=== PATIENT | female | born 1980 | race Caucasian/White ===

== ENCOUNTER 2016-10-25 09:03 | Day surgery (SDC) | payer MEDICAID ==
[2016-10-25] MEDS ORDERED: HYOSCYAMINE SULFATE ODT 0.125 MG TAB.SUBL PO ONE (12:00)
[2016-10-25] MEDS ORDERED: PROPOFOL 10 MG/ML VIAL IV ONE (14:00)
[2016-10-25] MEDS ORDERED: LIDOCAINE 2% MDV (20MG/ML) 20ML VIAL IV ONE (14:00)
[2016-10-25] MEDS ORDERED: MIDAZOLAM HCL 2MG/2ML VIAL IV ONE (14:00)
--- NOTE | 2016-10-28 08:00 | Operative Note ---
DATE OF SURGERY: 10/25/2016 SURGEON: Yamilet Chavarria MD OPERATION: COLONOSCOPY. INDICATIONS: This is a 36-year-old female with history of chronic diarrhea who presented for colonoscopy. POSTOPERATIVE DIAGNOSES: 1. Normal colonic and terminal ileum mucosa, status post random colon biopsies. 2. Grade 1 internal hemorrhoids. ANESTHESIA: Sedation is per Anesthesia. Pulse oximetry was monitored throughout the procedure to maintain O2 saturation of 90% or greater. Supplemental oxygen was administered via nasal cannula. Cardiac and vital signs were monitored throughout the duration of the procedure, and they were stable. The procedure of colonoscopy and risks and alternatives of the procedure, including the risk of bleeding and perforation, among others, were explained to the patient who voiced understanding and agreed to have the procedure done. Physical examination was performed, and the patient was found stable for sedation. PROCEDURE: The patient was placed in the left lateral position. Sedation was initiated. A digital rectal exam was performed and showed some mild external hemorrhoids with no palpable rectal masses. An Olympus PCF-180AL colonoscope was then inserted into the rectum under direct visualization. It was advanced to the cecum without difficulty. The ileocecal valve and appendiceal orifice were identified and photographed. The colonic mucosa was carefully examined upon introduction of the colonoscope. There were no lesions noted. The was intubated and terminal ileum mucosa was inspected for 10 cm and it appeared normal. The colonoscope was then withdrawn while carefully examining the colonic mucosal surfaces. No other lesions were noted. Random colon biopsies were obtained to rule out microscopic colitis. In the rectum, retroflexion was performed and grade 1 internal hemorrhoids were noted. The colonoscope was then withdrawn and the procedure was terminated. The patient tolerated the procedure well without any immediate complications. She remained with stable vital signs and was transferred to the recovery room. RECOMMENDATIONS: 1. The patient should be on a high-fiber diet. 2. The patient is to have a repeat colonoscopy for screening as needed. In the meantime, we will be seeing her back in the office. Thank you for allowing me to participate in the care of your patient. Yamilet Chavarria MD CC: Dr. Maria T FITCH
== END 2016-10-25 12:12 | disposition home or self-care (01) ==
LOC: HOP 09:03
PROVIDERS: ATTEND Internal Medicine Gastroenterology
DX: K52.9 Noninfective gastroenteritis and colitis, unspecified (principal); K64.0 First degree hemorrhoids; F31.9 Bipolar disorder, unspecified; E03.9 Hypothyroidism, unspecified
CPT/HCPCS: 45380; 00810; J1980

== ENCOUNTER 2016-11-06 13:30 | Emergency (ER) | payer MEDICAID ==
--- NOTE | 2016-11-06 14:17 | Emergency Department Record ---
History of Present Illness - General Chief complaint: Allergic Reaction Stated complaint: MAY BE HAVING A REACTION TO HER MEDS Time Seen by Provider: 11/06/16 13:40 Source: Patient, RN notes reviewed Mode of Arrival: Ambulatory - History of Present Illness Initial Comments: balance is off and she took areduced level of lithium today 600 mg and she didn' t take her lithium last night and this happened once before and she was increased to 900 mg BID in aug 2016. History of bipolar disorder Onset/Timin -: Week(s) Exposure: Medication Symptoms: Other Severity: Mild Treatment Prior to Arrival: None Previous Allergy History: Other - Related Data Home Medications Medication Instructions Recorded Confirmed Last Taken Alprazolam 1 mg PO DAILY PRN 01/11/15 11/06/16 12/25/15 Escitalopram Oxalate [Lexapro] 20 mg PO DAILY 10/19/15 11/06/16 12/25/15 [place] Carbonate [Neshanic 900 mg PO QAM tab 12/29/15 11/06/16 11/06/16 Carbonate Er] Clonidine HCl 0.3 mg PO ONCE tab 06/20/16 11/06/16 Unknown [place] Carbonate 900 mg PO QHS 07/14/16 11/06/16 11/05/16 Hydrocodone/Acetaminophen 1 tab PO QHS 08/09/16 11/06/16 Unknown [Hydrocodon-Acetaminophen 5-325] Previous Rx's Medication Instructions Recorded Promethazine HCl [Phenergan] 25 mg PO TID #15 tablet 07/14/16 Albuterol Sulfate [Proair Hfa] 1 - 2 puff IH .EVERY 4-6 HOURS PRN 08/09/16 #1 inhaler Allergies Allergy/AdvReac Type Severity Reaction Status Date / Time cefuroxime axetil Allergy Intermediate RASH Verified 11/06/16 13:57 [From Ceftin] clarithromycin [From Biaxin] Allergy Intermediate RASH Verified 11/06/16 13:57 divalproex sodium Allergy Intermediate ALTERED Verified 11/06/16 13:57 [From Depakote] MENTAL STATUS gabapentin Allergy Intermediate ALTERED Verified 11/06/16 13:57 MENTAL STATUS iron Allergy Intermediate ITCHING Verified 11/06/16 13:57 Penicillins Allergy Intermediate HIVES Verified 11/06/16 13:57 ondansetron HCl AdvReac Intermediate ALTERED Verified 11/06/16 13:57 [From Zofran (as MENTAL hydrochloride)] STATUS Travel Screening - Travel/Exposure Within Last 30 Days Have you traveled within the last 30 days?: No Review of Systems Reviewed: No additional complaints except as noted below Constitutional: Reports: As per HPI. Denies: Chills, Fever, Malaise, Night sweats, Weakness, Weight change Eyes: Reports: As per HPI. Denies: Eye discharge, Eye pain, Photophobia, Vision change ENT: Reports: As per HPI. Denies: Congestion, Dental pain, Ear pain, Epistaxis , Hearing loss, Throat pain Respiratory: Reports: As per HPI. Denies: Cough, Dyspnea, Hemoptysis, Stridor, Wheezes Cardiovascular: Reports: As per HPI. Denies: Arrhythmia, Chest pain, Dyspnea on exertion, Edema, Murmurs, Orthopnea, Palpitations, Paroxysmal nocturnal dyspnea, Rheumatic Fever, Syncope Endocrine: Reports: As per HPI. Denies: Fatigue, Heat or cold intolerance, Polydipsia, Polyuria Gastrointestinal: Reports: As per HPI. Denies: Abdominal pain, Constipation, Diarrhea, Hematemesis, Hematochezia, Melena, Nausea, Vomiting Genitourinary: Reports: As per HPI. Denies: Abnormal menses, Discharge, Dyspareunia, Dysuria, Frequency, Hematuria, Incontinence, Retention, Urgency Musculoskeletal: Reports: As per HPI. Denies: Arthralgia, Back pain, Gout, Joint swelling, Myalgia, Neck pain Skin: Reports: As per HPI. Denies: Bruising, Change in color, Change in hair/ nails, Lesions, Pruritus, Rash Neurological: Reports: As per HPI, Abnormal gait. Denies: Confusion, Headache, Numbness, Paresthesias, Seizure, Tingling, Tremors, Vertigo, Weakness Psychiatric: Reports: As per HPI. Denies: Anxiety, Auditory hallucinations, Depression, Homicidal thoughts, Suicidal thoughts, Visual hallucinations Hematological/Lymphatic: Reports: As per HPI. Denies: Anemia, Blood Clots, Easy bleeding, Easy bruising, Swollen glands Past Medical History - SOCIAL HISTORY Smoking Status: Former smoker Alcohol Use: None Drug Use: None - RESPIRATORY Hx Respiratory Disorders: Yes Hx Asthma: Yes Hx Bronchitis: Yes Hx Pneumonia: Yes Hx Pulmonary Embolism: Yes (1 in left and 1 in right) - CARDIOVASCULAR Hx Cardio Disorders: Yes Hx Deep Vein Thrombosis: Yes (4 in RLE) Hx Hypertension: Yes Comment:: high cholestrol - NEURO Hx Neuro Disorders: No - GI Hx GI Disorders: Yes Comment:: fatty liver disease - Hx Genitourinary Disorders: Yes - ENDOCRINE Hx Endocrine Disorders: Yes Hx Thyroid Disease: Yes - MUSCULOSKELETAL Hx Musculoskeletal Disorders: No - PSYCH Hx Psych Problems: Yes Hx Anxiety: Yes (panic disorder) Hx Behavior Problems: Yes Hx Depression: Yes Comment:: Bipolar type 1, ADD - HEMATOLOGY/ONCOLOGY Hx Hematology/Oncology Disorders: Yes Hx Anemia: Yes (iron deficiency) Hx Blood Transfusions: Yes Hx Blood Transfusion Reaction: No Family Medical History Any Significant Family History?: Yes Hx HTN: Father, Mother, Brother/Sister, Grandparents Physical Exam - General General Appearance: Alert, Oriented x3, Cooperative, No acute distress - Head Head exam: Normal inspection - Eye Eye exam: Normal appearance, PERRL Pupils: Normal accommodation - ENT ENT exam: Normal exam, Mucous membranes moist, Normal external ear exam, Normal orophraynx, TM's normal bilaterally Ear exam: Normal external inspection. negative: External canal tenderness Nasal Exam: Normal inspection. negative: Discharge, Sinus tenderness Mouth exam: Normal external inspection, Tongue normal Teeth exam: Normal inspection. negative: Dental caries Throat exam: Normal inspection. negative: Tonsillar erythema, Tonsillar exudate - Neck Neck exam: Normal inspection, Full ROM. negative: Tenderness - Respiratory Respiratory exam: Normal lung sounds bilaterally. negative: Respiratory distress - Cardiovascular Cardiovascular Exam: Regular rate, Normal rhythm, Normal heart sounds - GI/Abdominal GI/Abdominal exam: Soft, Normal bowel sounds. negative: Tenderness - Rectal Rectal exam: Deferred - exam: Deferred - Extremities Extremities exam: Normal inspection, Full ROM, Normal capillary refill. negative: Tenderness - Back Back exam: Reports: Normal inspection, Full ROM. Denies: Muscle spasm, Rash noted, Tenderness - Neurological Neurological exam: Alert, Normal gait, Oriented X3, Reflexes normal - Psychiatric Psychiatric exam: Normal affect, Normal mood - Skin Skin exam: Dry, Intact, Normal color, Warm Course Vital Signs 11/06/16 13:53 Temperature 98.8 F Pulse Rate 75 Respiratory 16 Rate Blood Pressure 128/81 Pulse Ox 97 Medical Decision Making - Lab Data Result diagrams: 11/06/16 14:10 11/06/16 14:10 Disposition Clinical Impression: Balance problem Neshanic toxicity Qualifiers: Encounter type: initial encounter Injury intent: accidental or unintentional Qualified Code(s): T56.891A - Toxic effect of other metals, accidental ( unintentional), initial encounter Disposition: Home, Self-Care Instructions: Adverse Drug Reaction (ED) Additional Instructions: stop lithium till friday and contact psychiatrist to decide on the dosage she needs to be on Forms: Patient Portal Access Time of Disposition: 15:19
[2016-11-06] MEDS ORDERED: 0.9 % SODIUM CHLORIDE 1,000 ML BAG IV ONE (14:19)
[2016-11-06 14:53] LABS: BASO % 0.5 % (0-6); EOS % 5.9 % (0-6); GRAN % 65.4 % (47-80); HEMATOCRIT 41.7 % (35.0-47.0); HEMOGLOBIN 13.6 gm/dl (11.6-16.0); LYMPH % 24.4 % (16-45); MEAN CELL VOLUME 93.7 fl (81-97); MEAN CORPUSCULAR HEMOGLOBIN 30.6 pg (27-33); MEAN CORPUSCULAR HGB CONC 32.6 g/dl (32-36); MEAN PLATELET VOLUME 10.5 fl (7.4-10.4); MONO % 3.8 % (0-9); PLATELET COUNT 257 K/uL (130-400); RED BLOOD COUNT 4.45 M/uL (3.80-5.40); RED CELL DISTRIBUTION WIDTH 13.6 % (11.5-14.5); WHITE BLOOD COUNT W/O DIFF 8.8 K/uL (4.2-12.2)
[2016-11-06 15:05] LABS: ANION GAP 14.1 (7-16); BLOOD UREA NITROGEN 5 mg/dL (7-17); CARBON DIOXIDE 22.9 mmol/L (22-30); CREATININE 0.6 mg/dL (0.52-1.04); EST GLOMERULAR FILTRATION RATE > 60 ml/min; GLUCOSE,RANDOM 99 mg/dL (70-110)
== END 2016-11-06 15:38 | disposition home or self-care (01) ==
LOC: ER 13:30
DX: T43.595A Adverse effect of other antipsychotics and neuroleptics, initial encounter (principal); R26.89 Other abnormalities of gait and mobility; F31.89 Other bipolar disorder
CPT/HCPCS: 80048; 85025; 96360; 99284; J7030

== ENCOUNTER 2016-12-02 19:00 | Emergency (ER) | payer MEDICAID ==
--- NOTE | 2016-12-02 19:49 | Emergency Department Record ---
History of Present Illness - General Chief complaint: ENT Stated complaint: SORE THROAT Time Seen by Provider: 12/02/16 19:36 Source: Patient Mode of Arrival: Ambulatory Limitations: No limitations - History of Present Illness Initial comments: pt has had a sore throat, cough, congestion. her daughter has strep. no fever. MD complaint: Sore throat Onset/Timin -: Week(s) Location: Throat Severity scale (1-10): 7 Quality: Aching Consistency: Constant Improves with: None Worsens with: Swallowing Associated Symptoms: Cough, Pain with swallowing, Rhinorrhea, Sore throat - Related Data Home Medications Medication Instructions Recorded Confirmed Last Taken Alprazolam 2 mg PO DAILY PRN 01/11/15 12/02/16 12/25/15 Escitalopram Oxalate [Lexapro] 20 mg PO DAILY 10/19/15 12/02/16 12/25/15 Clonidine HCl 0.3 mg PO QHS tab 06/20/16 12/02/16 Unknown Hydrocodone/Acetaminophen 0.5 tab PO QHS 08/09/16 12/02/16 Unknown [Hydrocodon-Acetaminophen 5-325] [place] Carbonate 300 mg PO BID 12/02/16 12/02/16 Unknown Multivitamin [Daily Multiple 1 each PO DAILY 12/02/16 12/02/16 Unknown Vitamin] Previous Rx's Medication Instructions Recorded Albuterol Sulfate [Proair Hfa] 1 - 2 puff IH .EVERY 4-6 HOURS PRN 08/09/16 #1 inhaler Allergies Allergy/AdvReac Type Severity Reaction Status Date / Time cefuroxime axetil Allergy Intermediate RASH Verified 11/06/16 13:57 [From Ceftin] clarithromycin [From Biaxin] Allergy Intermediate RASH Verified 11/06/16 13:57 divalproex sodium Allergy Intermediate ALTERED Verified 11/06/16 13:57 [From Depakote] MENTAL STATUS gabapentin Allergy Intermediate ALTERED Verified 11/06/16 13:57 MENTAL STATUS iron Allergy Intermediate ITCHING Verified 11/06/16 13:57 Penicillins Allergy Intermediate HIVES Verified 11/06/16 13:57 ondansetron HCl AdvReac Intermediate ALTERED Verified 11/06/16 13:57 [From Zofran (as MENTAL hydrochloride)] STATUS Travel Screening - Travel/Exposure Within Last 30 Days Have you traveled within the last 30 days?: No - Travel Symptoms Symptom Screening: None Review of Systems Reviewed: No additional complaints except as noted below Constitutional: Reports: As per HPI. Denies: Chills, Fever, Malaise, Night sweats, Weakness, Weight change Eyes: Reports: As per HPI. Denies: Eye discharge, Eye pain, Photophobia, Vision change ENT: Reports: As per HPI. Denies: Congestion, Dental pain, Ear pain, Epistaxis , Hearing loss, Throat pain Respiratory: Reports: As per HPI. Denies: Cough, Dyspnea, Hemoptysis, Stridor, Wheezes Cardiovascular: Reports: As per HPI. Denies: Arrhythmia, Chest pain, Dyspnea on exertion, Edema, Murmurs, Orthopnea, Palpitations, Paroxysmal nocturnal dyspnea, Rheumatic Fever, Syncope Endocrine: Reports: As per HPI. Denies: Fatigue, Heat or cold intolerance, Polydipsia, Polyuria Gastrointestinal: Reports: As per HPI. Denies: Abdominal pain, Constipation, Diarrhea, Hematemesis, Hematochezia, Melena, Nausea, Vomiting Genitourinary: Reports: As per HPI. Denies: Abnormal menses, Discharge, Dyspareunia, Dysuria, Frequency, Hematuria, Incontinence, Retention, Urgency Musculoskeletal: Reports: As per HPI. Denies: Arthralgia, Back pain, Gout, Joint swelling, Myalgia, Neck pain Skin: Reports: As per HPI. Denies: Bruising, Change in color, Change in hair/ nails, Lesions, Pruritus, Rash Neurological: Reports: As per HPI. Denies: Abnormal gait, Confusion, Headache, Numbness, Paresthesias, Seizure, Tingling, Tremors, Vertigo, Weakness Psychiatric: Reports: As per HPI. Denies: Anxiety, Auditory hallucinations, Depression, Homicidal thoughts, Suicidal thoughts, Visual hallucinations Hematological/Lymphatic: Reports: As per HPI. Denies: Anemia, Blood Clots, Easy bleeding, Easy bruising, Swollen glands Past Medical History - SOCIAL HISTORY Smoking Status: Former smoker - RESPIRATORY Hx Respiratory Disorders: Yes Hx Asthma: Yes Hx Bronchitis: Yes Hx Pneumonia: Yes Hx Pulmonary Embolism: Yes (1 in left and 1 in right) - CARDIOVASCULAR Hx Cardio Disorders: Yes Hx Deep Vein Thrombosis: Yes (4 in RLE) Hx Hypertension: Yes Comment:: high cholestrol - NEURO Hx Neuro Disorders: No - GI Hx GI Disorders: Yes Comment:: fatty liver disease - Hx Genitourinary Disorders: Yes - ENDOCRINE Hx Endocrine Disorders: Yes Hx Thyroid Disease: Yes - MUSCULOSKELETAL Hx Musculoskeletal Disorders: No - PSYCH Hx Psych Problems: Yes Hx Anxiety: Yes (panic disorder) Hx Behavior Problems: Yes Hx Depression: Yes Comment:: Bipolar type 1, ADD - HEMATOLOGY/ONCOLOGY Hx Hematology/Oncology Disorders: Yes Hx Anemia: Yes (iron deficiency) Hx Blood Transfusions: Yes Hx Blood Transfusion Reaction: No Family Medical History Any Significant Family History?: Yes Hx HTN: Father, Mother, Brother/Sister, Grandparents Physical Exam - General General Appearance: Alert, Oriented x3, Cooperative, Mild distress - Head Head exam: Normal inspection - Eye Eye exam: Normal appearance, PERRL, EOMI Pupils: Normal accommodation - ENT ENT exam: Normal exam, Mucous membranes moist, Normal external ear exam, Normal orophraynx, TM's normal bilaterally Ear exam: Normal external inspection. negative: External canal tenderness Nasal Exam: Normal inspection. negative: Discharge, Sinus tenderness Mouth exam: Normal external inspection, Tongue normal Teeth exam: Normal inspection. negative: Dental caries Throat exam: Tonsillar erythema, Tonsillar exudate - Neck Neck exam: Normal inspection, Full ROM. negative: Tenderness - Respiratory Respiratory exam: Normal lung sounds bilaterally. negative: Respiratory distress - Cardiovascular Cardiovascular Exam: Normal rhythm, Normal heart sounds, Tachycardia - GI/Abdominal GI/Abdominal exam: Soft, Normal bowel sounds. negative: Tenderness - Rectal Rectal exam: Deferred - exam: Deferred - Extremities Extremities exam: Normal inspection, Full ROM, Normal capillary refill. negative: Tenderness - Back Back exam: Reports: Normal inspection, Full ROM. Denies: Muscle spasm, Rash noted, Tenderness - Neurological Neurological exam: Alert, CN II-XII intact, Normal gait, Oriented X3 - Psychiatric Psychiatric exam: Normal affect, Normal mood - Skin Skin exam: Dry, Intact, Normal color, Warm Course Vital Signs 12/02/16 19:15 Temperature 98.3 F Pulse Rate [ 119 H Pulse Ox Probe] Respiratory 20 Rate Blood Pressure 129/96 [Left Arm] Pulse Ox 96 Medical Decision Making - Lab Data Lab Results 12/02/16 Range/Units 19:15 Group A Strep Screen Negative (NEGATIVE) Disposition Disposition: Discharge Clinical Impression: Pharyngitis Qualifiers: Pharyngitis/tonsillitis etiology: unspecified etiology Qualified Code(s): J02.9 - Acute pharyngitis, unspecified Disposition: Home, Self-Care Condition: (1) Good Instructions: Pharyngitis (ED) Additional Instructions: follow up with family doctor. return sooner if worse. tylenol and motrin. rest. Forms: Patient Portal Access
[2016-12-02 20:04] LABS: INFLUENZA A NEGATIVE (NEGATIVE); INFLUENZA B NEGATIVE (NEGATIVE)
== END 2016-12-02 20:21 | disposition home or self-care (01) ==
LOC: ER 19:00
DX: J02.9 Acute pharyngitis, unspecified (principal); R05 Cough
CPT/HCPCS: 87400; 87880; 99282

== ENCOUNTER 2016-12-29 19:42 | Emergency (ER) | payer MEDICAID ==
--- NOTE | 2016-12-29 20:16 | Emergency Department Record ---
History of Present Illness - General Chief Complaint: Chest Pain Stated Complaint: CHEST PAIN/DIZZY Time Seen by Provider: 12/29/16 20:07 Source: Patient Mode of Arrival: Ambulatory Limitations: No limitations - History of Present Illness Initial Comments: The patient is here due to a 5 day hx of CP. She woke up with the pain 5 days ago and it has waxed and waned since. She describes the pain as sometimes a heaviness, sometimes sharp, with no SOB, BRIONNA, sweating, or nausea associated with the pain. The patient does have a hx of a PE and states the pain is similar at times. She denies any recent cough, fever, chills, or any leg pain or recent travel. She does not have any cardiac risk factors. MD Complaint: Chest pain Onset/Timin -: Days(s) Pain Location: Other Pain Radiation: None Severity: Mild Severity scale (1-10): 6 Quality: Heaviness Consistency: Constant Improves With: Nothing Worsens With: Nothing Context: Other Other Symptoms: Other Treatment Prior to Arrival Comment:: anxiety tx's - Related Data Home Medications Medication Instructions Recorded Confirmed Last Taken Alprazolam 2 mg PO DAILY PRN 01/11/15 12/29/16 12/25/15 Escitalopram Oxalate [Lexapro] 20 mg PO DAILY 10/19/15 12/29/16 12/25/15 Clonidine HCl 0.3 mg PO QHS tab 06/20/16 12/29/16 Unknown Hydrocodone/Acetaminophen 0.5 tab PO QHS 08/09/16 12/29/16 Unknown [Hydrocodon-Acetaminophen 5-325] [place] Carbonate 300 mg PO BID 12/02/16 12/29/16 Unknown Multivitamin [Daily Multiple 1 each PO DAILY 12/02/16 12/29/16 Unknown Vitamin] Previous Rx's Medication Instructions Recorded Albuterol Sulfate [Proair Hfa] 1 - 2 puff IH .EVERY 4-6 HOURS PRN 08/09/16 #1 inhaler Naproxen [Naprosyn] 500 mg PO BID #14 tablet. 12/29/16 Allergies Allergy/AdvReac Type Severity Reaction Status Date / Time cefuroxime axetil Allergy Intermediate RASH Verified 11/06/16 13:57 [From Ceftin] clarithromycin [From Biaxin] Allergy Intermediate RASH Verified 11/06/16 13:57 divalproex sodium Allergy Intermediate ALTERED Verified 11/06/16 13:57 [From Depakote] MENTAL STATUS gabapentin Allergy Intermediate ALTERED Verified 11/06/16 13:57 MENTAL STATUS iron Allergy Intermediate ITCHING Verified 11/06/16 13:57 Penicillins Allergy Intermediate HIVES Verified 11/06/16 13:57 ondansetron HCl AdvReac Intermediate ALTERED Verified 11/06/16 13:57 [From Zofran (as MENTAL hydrochloride)] STATUS Travel Screening - Travel/Exposure Within Last 30 Days Have you traveled within the last 30 days?: No - Travel/Exposure Within Last Year Have you traveled outside the [place] in the last year?: No - Additonal Travel Details Have you been exposed to anyone with a communicable illness?: No - Travel Symptoms Symptom Screening: None Review of Systems Constitutional: Denies: Chills, Fever Eyes: Denies: Eye discharge ENT: Denies: Congestion Respiratory: Denies: Cough, Dyspnea Cardiovascular: Reports: Chest pain Past Medical History - SOCIAL HISTORY Smoking Status: Former smoker Alcohol Use: None Drug Use: None - RESPIRATORY Hx Respiratory Disorders: Yes Hx Asthma: Yes Hx Bronchitis: Yes Hx Pneumonia: Yes Hx Pulmonary Embolism: Yes (1 in left and 1 in right) - CARDIOVASCULAR Hx Cardio Disorders: Yes Hx Deep Vein Thrombosis: Yes (4 in RLE) Hx Hypertension: Yes Comment:: high cholestrol - NEURO Hx Neuro Disorders: No - GI Hx GI Disorders: Yes Comment:: fatty liver disease - Hx Genitourinary Disorders: Yes - ENDOCRINE Hx Endocrine Disorders: Yes Hx Thyroid Disease: Yes - MUSCULOSKELETAL Hx Musculoskeletal Disorders: No - PSYCH Hx Psych Problems: Yes Hx Anxiety: Yes (panic disorder) Hx Behavior Problems: Yes Hx Depression: Yes Comment:: Bipolar type 1, ADD - HEMATOLOGY/ONCOLOGY Hx Hematology/Oncology Disorders: Yes Hx Anemia: Yes (iron deficiency) Hx Blood Transfusions: Yes Hx Blood Transfusion Reaction: No Family Medical History Any Significant Family History?: No Hx HTN: Father, Mother, Brother/Sister, Grandparents Physical Exam - General General Appearance: Alert, Oriented x3, Cooperative, No acute distress - Head Head exam: Atraumatic, Normocephalic, Normal inspection - Eye Eye exam: Normal appearance, PERRL - ENT Throat exam: Normal inspection. negative: Tonsillar erythema, Tonsillar exudate - Neck Neck exam: Normal inspection, Full ROM. negative: Tenderness - Respiratory Respiratory exam: Normal lung sounds bilaterally, Chest wall tenderness ( Palpation of the anterior chest wall exactly reproduces the patient's chest pain. Chest rotation and shoulder extension also reproduce the pain.). negative : Respiratory distress - Cardiovascular Cardiovascular Exam: Regular rate, Normal rhythm, Normal heart sounds - GI/Abdominal GI/Abdominal exam: Soft, Normal bowel sounds. negative: Tenderness - Extremities Extremities exam: Normal inspection, Full ROM, Normal capillary refill. negative: Tenderness - Neurological Neurological exam: Alert, Normal gait. negative: Abnormal gait, Motor sensory deficit - Psychiatric Psychiatric exam: negative: Anxious, Depressed Course Vital Signs 12/29/16 19:54 Temperature 98.2 F Pulse Rate 68 Respiratory 20 Rate Blood Pressure 133/74 Pulse Ox 98 - Reevaluation(s) Reevaluation #1: The patient is resting comfortably. She denies any new symptoms. Her pain is still very reproducible to palpation. I did explain to her that her workup is normal and that we will be treating her with pain medicine for chest wall pain. 12/29/16 21:20 Reevaluation #2: The patient is doing well. She is still having the pain which is still 100% reproducible and now states she is out of her chronic pain medicine which is Follett. She states she ran out 3-4 days ago and her chest wall pain has increased since then. I explained to her that we will be unable to give her a script for Follett but that I can get her 2 pills for home to last her until she can see her PCP tomorrow. 12/29/16 21:35 Medical Decision Making - Data Complexity MDM Data: Labs Ordered and/or Reviewed, X-Ray Ordered and/or Reviewed, EKG Ordered and/or Reviewed - Lab Data Result diagrams: 12/29/16 20:15 12/29/16 20:15 - EKG Data -: EKG Interpreted by Me EKG: No Acute Changes, Normal EKG - Radiology Data Radiology results: Report reviewed (CXR: Neg Chest CT: Neg) Disposition Disposition: Discharge Clinical Impression: Chest wall pain Disposition: Home, Self-Care Condition: (1) Good Instructions: Chest Wall Pain (ED) Additional Instructions: Please take the Naprosyn for pain and continue your regular medicines. Please see your PCP this week for recheck and to refill your Follett. Return to the ER for any increased pain, fever, or any trouble breathing. Prescriptions: Naproxen [Naprosyn] 500 mg PO BID #14 tablet.dr Forms: Patient Portal Access Time of Disposition: 21:35
[2016-12-29 20:26] LABS: BASO % 0.8 % (0-6); EOS % 4.4 % (0-6); GRAN % 57.8 % (47-80); HEMATOCRIT 40.5 % (35.0-47.0); HEMOGLOBIN 13.1 gm/dl (11.6-16.0); LYMPH % 31.4 % (16-45); MEAN CELL VOLUME 92.7 fl (81-97); MEAN CORPUSCULAR HGB CONC 32.3 g/dl (32-36); MEAN PLATELET VOLUME 10.1 fl (7.4-10.4); MONO % 5.6 % (0-9); PLATELET COUNT 254 K/uL (130-400); RED BLOOD COUNT 4.37 M/uL (3.80-5.40); RED CELL DISTRIBUTION WIDTH 13.4 % (11.5-14.5); WHITE BLOOD COUNT W/O DIFF 10.4 K/uL (4.2-12.2)
[2016-12-29 20:36] LABS: ANION GAP 9.7 (7-16); BLOOD UREA NITROGEN 9 mg/dL (7-17); CARBON DIOXIDE 27.3 mmol/L (22-30); CREATINE PHOSPHOKINASE 55 U/L (30-135); CREATININE 0.7 mg/dL (0.52-1.04); EST GLOMERULAR FILTRATION RATE > 60 ml/min; GLUCOSE,RANDOM 85 mg/dL (70-110)
[2016-12-29 20:40] LABS: D-DIMER 0.5 mg/L FEU (0-0.59); INR 0.99; PARTIAL THROMBOPLASTIN TIME 24.9 SECONDS (24.5-39.1); PROTHROMBIN TIME (PATIENT) 11.2 SECONDS (9.5-12.1)
[2016-12-29] MEDS ORDERED: 0.9 % SODIUM CHLORIDE 1,000 ML BAG IV ONE (20:46)
[2016-12-29 20:48] LABS: CKMB 1.9 ug/L (0-6); TROPONIN I < 0.012 ng/mL (0.00-0.034)
[2016-12-29] MEDS ORDERED: KETOROLAC 30 MG/ML VIAL IVP ONE (21:18)
[2016-12-29] MEDS ORDERED: HYDROCODONE/APAP 5/325MG TABLET PO ONE (21:33)
== END 2016-12-29 21:48 | disposition home or self-care (01) ==
LOC: ER 19:42
DX: R07.89 Other chest pain (principal); R42 Dizziness and giddiness; I10 Essential (primary) hypertension; Z86.711 Personal history of pulmonary embolism; Z87.891 Personal history of nicotine dependence
CPT/HCPCS: 99284 ×2; 96374; 96361; 82550; 85025; 85730; 85610; 82553; 84484; 80048; 85379; 71020; 71275; 93005; 93010; Q9967; J1885; J7030

== ENCOUNTER 2017-03-13 20:02 | Emergency (ER) | payer MEDICAID ==
--- NOTE | 2017-03-13 20:24 | Emergency Department Record ---
History of Present Illness - General Chief complaint: Swelling of legs Stated complaint: PAIN AND SWELLING IN LEFT LEG Time Seen by Provider: 03/13/17 20:19 Source: Patient Mode of Arrival: Ambulatory - History of Present Illness Initial comments: The patient states that she began having swelling in her foot and up her left lower leg yesterday morning. This evening prior to arrival she developed SOB/ CP also. These symptoms are like her prior DVT and PE which she has had in the past in September of 2015 when her D Dimer was 10. She had been placed on on anticoagulants at that time, but has been off them since January of 2016. She has had several CTA's since then. She denies ever having seen a concrete form setter, and denies ever having had a stress test. She denies history of WI, DM, htn, chol elevation. She is a former smoker. She states she has a clotting problem but is unsure of what kind. MD Complaint: Extremity swelling Onset/Timin -: Days(s) Location: Left, Foot Severity scale (1-10): 5 Consistency: Constant, Getting worse Worsens with: Nothing Associated Symptoms: Denies other symptoms - Related Data Home Medications Medication Instructions Recorded Confirmed Last Taken Alprazolam 2 mg PO BID PRN 01/11/15 03/13/17 12/25/15 Escitalopram Oxalate [Lexapro] 20 mg PO DAILY 10/19/15 03/13/17 12/25/15 Clonidine HCl 0.3 mg PO QHS tab 06/20/16 03/13/17 Unknown Hydrocodone/Acetaminophen 0.5 tab PO QHS 08/09/16 03/13/17 Unknown [Hydrocodon-Acetaminophen 5-325] Mcloud Carbonate 300 mg PO BID 12/02/16 03/13/17 Unknown Multivitamin [Daily Multiple 1 each PO DAILY 12/02/16 03/13/17 Unknown Vitamin] Previous Rx's Medication Instructions Recorded Albuterol Sulfate [Proair Hfa] 1 - 2 puff IH .EVERY 4-6 HOURS PRN 08/09/16 #1 inhaler Allergies Allergy/AdvReac Type Severity Reaction Status Date / Time cefuroxime axetil Allergy Intermediate RASH Unverified 02/25/17 19:31 [From Ceftin] clarithromycin [From Biaxin] Allergy Intermediate RASH Unverified 02/25/17 19:31 divalproex sodium Allergy Intermediate ALTERED Unverified 02/25/17 19:31 [From Depakote] MENTAL STATUS gabapentin Allergy Intermediate ALTERED Unverified 02/25/17 19:31 MENTAL STATUS iron Allergy Intermediate ITCHING Unverified 02/25/17 19:31 Penicillins Allergy Intermediate HIVES Unverified 02/25/17 19:31 ondansetron HCl AdvReac Intermediate ALTERED Unverified 02/25/17 19:31 [From Zofran (as MENTAL hydrochloride)] STATUS Travel Screening - Travel/Exposure Within Last 30 Days Have you traveled within the last 30 days?: No Review of Systems Reviewed: No additional complaints except as noted below Constitutional: Reports: As per HPI. Denies: Chills, Fever, Malaise, Night sweats, Weakness, Weight change Eyes: Reports: As per HPI. Denies: Eye discharge, Eye pain, Photophobia, Vision change ENT: Reports: As per HPI. Denies: Congestion, Dental pain, Ear pain, Epistaxis , Hearing loss, Throat pain Respiratory: Reports: As per HPI. Denies: Cough, Dyspnea, Hemoptysis, Stridor, Wheezes Cardiovascular: Reports: As per HPI. Denies: Arrhythmia, Chest pain, Dyspnea on exertion, Edema, Murmurs, Orthopnea, Palpitations, Paroxysmal nocturnal dyspnea, Rheumatic Fever, Syncope Endocrine: Reports: As per HPI. Denies: Fatigue, Heat or cold intolerance, Polydipsia, Polyuria Gastrointestinal: Reports: As per HPI. Denies: Abdominal pain, Constipation, Diarrhea, Hematemesis, Hematochezia, Melena, Nausea, Vomiting Genitourinary: Reports: As per HPI. Denies: Abnormal menses, Discharge, Dyspareunia, Dysuria, Frequency, Hematuria, Incontinence, Retention, Urgency Musculoskeletal: Reports: As per HPI. Denies: Arthralgia, Back pain, Gout, Joint swelling, Myalgia, Neck pain Skin: Reports: As per HPI. Denies: Bruising, Change in color, Change in hair/ nails, Lesions, Pruritus, Rash Neurological: Reports: As per HPI. Denies: Abnormal gait, Confusion, Headache, Numbness, Paresthesias, Seizure, Tingling, Tremors, Vertigo, Weakness Psychiatric: Reports: As per HPI. Denies: Anxiety, Auditory hallucinations, Depression, Homicidal thoughts, Suicidal thoughts, Visual hallucinations Hematological/Lymphatic: Reports: As per HPI. Denies: Anemia, Blood Clots, Easy bleeding, Easy bruising, Swollen glands Past Medical History - SOCIAL HISTORY Smoking Status: Former smoker Alcohol Use: None Drug Use: None - RESPIRATORY Hx Respiratory Disorders: Yes Hx Asthma: Yes Hx Bronchitis: Yes Hx Pneumonia: Yes Hx Pulmonary Embolism: Yes (1 in left and 1 in right) - CARDIOVASCULAR Hx Cardio Disorders: Yes Hx Deep Vein Thrombosis: Yes (4 in RLE) Hx Hypertension: Yes Comment:: high cholestrol - NEURO Hx Neuro Disorders: No - GI Hx GI Disorders: Yes Comment:: fatty liver disease - Hx Genitourinary Disorders: Yes - ENDOCRINE Hx Endocrine Disorders: Yes Hx Thyroid Disease: Yes - MUSCULOSKELETAL Hx Musculoskeletal Disorders: No - PSYCH Hx Psych Problems: Yes Hx Anxiety: Yes (panic disorder) Hx Behavior Problems: Yes Hx Depression: Yes Comment:: Bipolar type 1, ADD - HEMATOLOGY/ONCOLOGY Hx Hematology/Oncology Disorders: Yes Hx Anemia: Yes (iron deficiency) Hx Blood Transfusions: Yes Hx Blood Transfusion Reaction: No Family Medical History Any Significant Family History?: Yes Hx HTN: Father, Mother, Brother/Sister, Grandparents Physical Exam - General General Appearance: Alert, Oriented x3, Cooperative, No acute distress, Anxious (mildly anxious) - Head Head exam: Normal inspection - Eye Eye exam: Normal appearance, PERRL Pupils: Normal accommodation - ENT ENT exam: Normal exam, Mucous membranes moist, Normal external ear exam, Normal orophraynx, TM's normal bilaterally Ear exam: Normal external inspection. negative: External canal tenderness Nasal Exam: Normal inspection. negative: Discharge, Sinus tenderness Mouth exam: Normal external inspection, Tongue normal Teeth exam: Normal inspection. negative: Dental caries Throat exam: Normal inspection. negative: Tonsillar erythema, Tonsillar exudate - Neck Neck exam: Normal inspection, Full ROM. negative: Lymphadenopathy, Meningismus , Tenderness - Respiratory Respiratory exam: Normal lung sounds bilaterally. negative: Respiratory distress - Cardiovascular Cardiovascular Exam: Regular rate, Normal rhythm, Normal heart sounds - GI/Abdominal GI/Abdominal exam: Soft, Normal bowel sounds. negative: Tenderness - Rectal Rectal exam: Deferred - exam: Deferred - Extremities Extremities exam: Normal inspection, Calf tenderness (left leg swollen from foot up to knee with tenderness in her calf posteriorly, no cellulitis. ), Full ROM, Normal capillary refill, Pedal edema (left leg from foot to below knee). negative: Tenderness - Back Back exam: Reports: Normal inspection, Full ROM. Denies: Muscle spasm, Rash noted, Tenderness - Neurological Neurological exam: Alert, Normal gait, Oriented X3, Reflexes normal - Psychiatric Psychiatric exam: Normal affect, Normal mood - Skin Skin exam: Dry, Intact, Normal color, Warm. negative: Diaphoretic, Petechiae Course Vital Signs 03/13/17 20:10 Temperature 98.2 F Pulse Rate [ 95 H Pulse Ox Probe] Respiratory 18 Rate Blood Pressure 141/95 [Left Arm] Pulse Ox 97 - Reevaluation(s) Reevaluation #1: The patient reports to me that on her way to CT scan she developed a 5-6/10 chest heaviness across the anterior chest and into her right shoulder. She has has some heaviness since 5 or 6 pm this evening about a 1-2 severity and attributed it to her anxiety attacks which she has had in the past. 03/13/17 22:12 Reevaluation #2: 15 minutes after her ativan the patient states that her chest symptoms have not changed and remain 5-6/10 heavy across the anterior chest and to right shoulder slightlyl. Nitro trial ordered. Patient wishes transfer to [facility] for her workup including dopplers of her left leg. 03/13/17 22:39 Reevaluation #3: 03/13/17 22:59 Patient states that the nitros times three did not change her chest pain. Toradol given. Preparing for transfer. Reevaluation #4: Spoke with Dr Rob Desai Emergency attending who accepts patient in transfer for dopplers of her left leg and evaluation for chest pain as indicated. 03/13/17 23:18 Medical Decision Making - Management Options MDM Management: Additional Work-up Planned (e.g. ADM/Transfer/OP Study) ( Transfer to [facility] Emergency for dopoplers of left leg and chest pain workup) - Data Complexity MDM Data: Labs Ordered and/or Reviewed, X-Ray Ordered and/or Reviewed (CTA: No PE aortic dissection or aneurysm. Bibasilar changes which were present on prior scan of December 2016. No infiltrates.), EKG Ordered and/or Reviewed - Lab Data Result diagrams: 03/13/17 20:34 03/13/17 20:34 - EKG Data -: EKG Interpreted by Me EKG: No Acute Changes, Unchanged From Previous (prior of 12-29-16) Disposition Disposition: Transfer Clinical Impression: Left leg swelling, Hx pulmonary embolism, Coagulopathy Chest pain Qualifiers: Chest pain type: precordial pain Qualified Code(s): R07.2 - Precordial pain Disposition: Acute Care Hospital Transfer Transfer To: [facility] Reason For Transfer: Dopplers of leg; chest pain evaluation Accepting Physician: Dr. Rivas Time Discussed w/Accepting Physician: 23:20 Condition: (2) Stable
[2017-03-13 20:45] LABS: BASO % 0.9 % (0-6); EOS % 5.5 % (0-6); GRAN % 60.5 % (47-80); HEMATOCRIT 37.3 % (35.0-47.0); HEMOGLOBIN 11.9 gm/dl (11.6-16.0); LYMPH % 28.3 % (16-45); MEAN CELL VOLUME 96.1 fl (81-97); MEAN CORPUSCULAR HEMOGLOBIN 30.7 pg (27-33); MEAN CORPUSCULAR HGB CONC 31.9 g/dl (32-36); MEAN PLATELET VOLUME 10.1 fl (7.4-10.4); MONO % 4.8 % (0-9); PLATELET COUNT 263 K/uL (130-400); RED BLOOD COUNT 3.88 M/uL (3.80-5.40); RED CELL DISTRIBUTION WIDTH 14.4 % (11.5-14.5); WHITE BLOOD COUNT W/O DIFF 9.7 K/uL (4.2-12.2)
[2017-03-13 20:54] LABS: ANION GAP 7.2 (7-16); BLOOD UREA NITROGEN 8 mg/dL (7-17); CARBON DIOXIDE 26.8 mmol/L (22-30); CREATININE 0.6 mg/dL (0.52-1.04); EST GLOMERULAR FILTRATION RATE > 60 ml/min; GLUCOSE,RANDOM 93 mg/dL (70-110)
[2017-03-13 20:58] LABS: INR 0.97; PARTIAL THROMBOPLASTIN TIME 22.5 SECONDS (24.5-39.1)
[2017-03-13 20:59] LABS: D-DIMER 0.85 mg/L FEU (0-0.59)
[2017-03-13 21:07] LABS: TROPONIN I < 0.012 ng/mL (0.00-0.034)
[2017-03-13 22:09] LABS: URINE APPEARANCE CLEAR; URINE BILIRUBIN NEGATIVE (NEGATIVE); URINE BLOOD NEGATIVE (NEGATIVE); URINE COLOR YELLOW; URINE GLUCOSE (UA) NEGATIVE (NEGATIVE); URINE KETONE NEGATIVE (NEGATIVE); URINE LEUKOCYTE ESTERASE NEGATIVE (NEGATIVE); URINE NITRITE NEGATIVE (NEGATIVE); URINE PROTEIN NEGATIVE (NEGATIVE); URINE UROBILINOGEN 0.2 E.U./dL (0.20 - 1.00)
[2017-03-13] MEDS ORDERED: ASPIRIN 325 MG TAB ENTERIC-COATED PO ONE (22:11)
[2017-03-13] MEDS ORDERED: LORAZEPAM 2 MG/ML VIAL IV ONE (22:11)
[2017-03-13] MEDS: NITROGLYCERIN 0.4MG SL TABLET #25 BTL SL PRN ×3 (22:41→22:51)
[2017-03-13] MEDS ORDERED: KETOROLAC 30 MG/ML VIAL IVP ONE (22:58)
--- NOTE | 2017-03-15 15:13 | CT ANGIOGRAM REPORT ---
DATE: 03/13/2017 at 21:05. EXAM: CT ANGIOGRAM OF THE CHEST. HISTORY: Chest pain with shortness of breath for two days. TECHNIQUE: CT angiogram of the chest was performed utilizing a pulmonary embolus protocol with 95 mL of Omnipaque 350 utilized. Coronal and sagittal maximum-intensity projection reformatted images are generated and reviewed. COMPARISON: CT angiogram of the chest dated 12/29/2016. FINDINGS: Opacification of the pulmonary arteries is satisfactory for interpretation. No luminal filling defect is noted in the outflow tract, main arteries, lobar arteries, nor proximal segmental arteries to suggest acute pulmonary embolic disease. The heart is near the upper limits of normal in size. There is no evidence of right heart strain. No atherosclerotic calcification of the coronary arteries nor thoracic aorta. No evidence of thoracic aortic dissection. No mediastinal or hilar mass/lymphadenopathy. Minor bi-apical lung scarring is redemonstrated. Minor patchy opacities are noted dependently in each lung base consistent with atelectasis. There is possible trace fluid in the dependent mid portions of each hemithorax versus atelectasis. The adrenal glands are not enlarged. The gallbladder is surgically absent, and no biliary ductal dilatation is seen. Diffuse hepatic steatosis is redemonstrated. No lytic or blastic bone lesion is seen. Mild degenerative endplate changes are noted at the mid to upper thoracic levels. IMPRESSION: 1. NO CT EVIDENCE OF ACUTE PULMONARY EMBOLIC DISEASE. 2. MILD DEPENDENT ATELECTASIS IN EACH LUNG BASE. THERE IS TRACE PLEURAL FLUID DEPENDENTLY AT THE MID ASPECTS OF EACH HEMITHORAX VERSUS ATELECTASIS. A RELATIVELY SIMILAR PATTERN IS NOTED ON THE PRIOR EXAMINATION. NO JULIA PLEURAL EFFUSION IS, HOWEVER, SEEN. 3. STATUS POST CHOLECYSTECTOMY. HEPATIC STEATOSIS. JOB NUMBER: [id number] [facility]
== END 2017-03-14 00:20 | disposition short-term general hospital (02) ==
LOC: ER 20:02
DX: R60.0 Localized edema (principal); R07.89 Other chest pain; R06.02 Shortness of breath; D68.9 Coagulation defect, unspecified; R79.89 Other specified abnormal findings of blood chemistry; I10 Essential (primary) hypertension; Z86.718 Personal history of other venous thrombosis and embolism; Z87.891 Personal history of nicotine dependence
CPT/HCPCS: 99285 ×2; 96374; 96375; 85025; 85730; 85610; 84484; 80048; 81003; 84443; 85379; 83880; 71275; 93005; 93010; Q9967; J1885; J2060

== ENCOUNTER 2017-03-31 13:19 | Observation (INO) | payer MEDICAID ==
--- NOTE | 2017-03-31 14:21 | Emergency Department Record ---
History of Present Illness - General Chief Complaint: Overdose Stated Complaint: MEDS CHECK Time Seen by Provider: 03/31/17 14:20 Source: Patient Mode of Arrival: Ambulatory Limitations: No limitations - History of Present Illness Initial Comments: The patient is here due to not feeling well for a few days. She states she takes Lithum for depression and anxiety and has been feeling depressed lately. Due to that fact she was taking a couple extra lithium a day for the last few days. She was NOT trying to OD or hurt herself but states the extra lithium helps with her depression. Now she feels like she may be lithium toxic. She has mild tremors, nausea, anxiety, and restlessness. MD Complaint: Accidental overdose Onset/Timin -: Days(s) - Maximus Coma Scale Eye Response: (4) Open spontaneously Motor Response: (6) Obeys commands Verbal Response: (5) Oriented Maximus Total: 15 Substance Ingested: Rhododendron - Detail Intent: Other How Overdose Was Discovered: Called counselor Associated Symptoms: Depression, Diarrhea, Lethargy, Nausea/vomiting, Paranoia - Related Data Home Medications Medication Instructions Recorded Confirmed Last Taken Alprazolam 2 mg PO BID PRN 01/11/15 03/31/17 03/31/17 Escitalopram Oxalate [Lexapro] 20 mg PO DAILY 10/19/15 03/31/17 03/31/17 Clonidine HCl 0.3 mg PO QHS tab 06/20/16 03/31/17 03/31/17 Hydrocodone/Acetaminophen 0.5 tab PO QHS 08/09/16 03/31/17 03/30/17 [Hydrocodon-Acetaminophen 5-325] Rhododendron Carbonate 300 mg PO BID 12/02/16 03/31/17 03/31/17 Multivitamin [Daily Multiple 1 each PO DAILY 12/02/16 03/31/17 03/31/17 Vitamin] Cholestyramine (with Sugar) 4 gm PO BID 03/31/17 03/31/17 03/31/17 [Cholestyramine Packet] Previous Rx's Medication Instructions Recorded Albuterol Sulfate [Proair Hfa] 1 - 2 puff IH .EVERY 4-6 HOURS PRN 08/09/16 #1 inhaler Allergies Allergy/AdvReac Type Severity Reaction Status Date / Time cefuroxime axetil Allergy Intermediate RASH Unverified 02/25/17 19:31 [From Ceftin] clarithromycin [From Biaxin] Allergy Intermediate RASH Unverified 02/25/17 19:31 divalproex sodium Allergy Intermediate ALTERED Unverified 02/25/17 19:31 [From Depakote] MENTAL STATUS gabapentin Allergy Intermediate ALTERED Unverified 02/25/17 19:31 MENTAL STATUS iron Allergy Intermediate ITCHING Unverified 02/25/17 19:31 Penicillins Allergy Intermediate HIVES Unverified 02/25/17 19:31 ondansetron HCl AdvReac Intermediate ALTERED Unverified 02/25/17 19:31 [From Zofran (as MENTAL hydrochloride)] STATUS Travel Screening - Travel/Exposure Within Last 30 Days Have you traveled within the last 30 days?: No - Travel/Exposure Within Last Year Have you traveled outside the [place] in the last year?: No - Additonal Travel Details Have you been exposed to anyone with a communicable illness?: No Review of Systems Constitutional: Denies: Chills, Fever Eyes: Denies: Eye discharge ENT: Denies: Congestion Respiratory: Denies: Cough, Dyspnea Past Medical History - SOCIAL HISTORY Smoking Status: Former smoker Alcohol Use: None Drug Use: None - RESPIRATORY Hx Respiratory Disorders: Yes Hx Asthma: Yes Hx Bronchitis: Yes Hx Pneumonia: Yes Hx Pulmonary Embolism: Yes (1 in left and 1 in right) - CARDIOVASCULAR Hx Cardio Disorders: Yes Hx Deep Vein Thrombosis: Yes (4 in RLE) Hx Hypertension: Yes Comment:: high cholestrol - NEURO Hx Neuro Disorders: No - GI Hx GI Disorders: Yes Comment:: fatty liver disease - Hx Genitourinary Disorders: Yes - ENDOCRINE Hx Endocrine Disorders: Yes Hx Thyroid Disease: Yes - MUSCULOSKELETAL Hx Musculoskeletal Disorders: No - PSYCH Hx Psych Problems: Yes Hx Anxiety: Yes (panic disorder) Hx Behavior Problems: Yes Hx Depression: Yes Comment:: Bipolar type 1, ADD - HEMATOLOGY/ONCOLOGY Hx Hematology/Oncology Disorders: Yes Hx Anemia: Yes (iron deficiency) Hx Blood Transfusions: Yes Hx Blood Transfusion Reaction: No Family Medical History Any Significant Family History?: No Hx HTN: Father, Mother, Brother/Sister, Grandparents Physical Exam - General General Appearance: Alert, Oriented x3, Cooperative, No acute distress - Head Head exam: Atraumatic, Normocephalic - Eye Eye exam: Normal appearance, PERRL - ENT Throat exam: Normal inspection. negative: Tonsillar erythema, Tonsillar exudate - Neck Neck exam: Normal inspection, Full ROM. negative: Tenderness - Respiratory Respiratory exam: Normal lung sounds bilaterally. negative: Respiratory distress - Cardiovascular Cardiovascular Exam: Regular rate, Normal rhythm, Normal heart sounds - GI/Abdominal GI/Abdominal exam: Soft, Normal bowel sounds. negative: Tenderness - Extremities Extremities exam: Normal inspection, Full ROM, Normal capillary refill. negative: Tenderness - Back Back exam: Reports: Normal inspection - Neurological Neurological exam: Alert, Normal gait, Oriented X3. negative: Abnormal gait, Motor sensory deficit - Psychiatric Psychiatric exam: negative: Anxious, Depressed Course Vital Signs 03/31/17 14:10 Temperature 99.1 F Pulse Rate 66 Respiratory 16 Rate Blood Pressure 122/81 Pulse Ox 96 - Reevaluation(s) Reevaluation #1: The patient is doing very well at this time. She is resting comfortably with no nausea, vomiting, or tremors. 03/31/17 15:00 Reevaluation #2: The patient is doing very well at this time. She denies any pain or discomfort and she has receive 2 liters of IVF. The Rhododendron level is quite toxic at 2.6 but the patient is doing very well at this time with very few symptoms of toxicity. Due to the level being that high we will admit her overnight to the hospital for hydration and for monitoring. I did discuss the case with Matilde ZAVALA) and she does accept the admission for DR. Can. 03/31/17 17:44 Medical Decision Making - Data Complexity MDM Data: Labs Ordered and/or Reviewed, EKG Ordered and/or Reviewed - Lab Data Result diagrams: 03/31/17 14:48 03/31/17 14:48 - EKG Data -: EKG Interpreted by Me EKG: No Acute Changes, Unchanged From Previous Disposition Disposition: Admit Clinical Impression: Rhododendron toxicity Qualifiers: Encounter type: initial encounter Injury intent: accidental or unintentional Qualified Code(s): T56.891A - Toxic effect of other metals, accidental ( unintentional), initial encounter Disposition: Still a Patient at [facility] Decision to Admit: Admit from ER Decision to Admit Date: 03/31/17 Decision to Admit Time: 17:47 Accepting Physician: Pamella Time Discussed w/Accepting Physician: 17:47 Condition: (2) Stable Forms: Patient Portal Access Time of Disposition: 17:47 Quality - Quality Measures Quality Measures: N/A - Blood Pressure Screening View Details: Yes Blood Pressure Classification: Pre-Hypertensive BP Reading Systolic Measurement: 122 Diastolic Measurement: 81 Screening for High Blood Pressure: < Pre-Hypertensive BP, F/U Documented > [ [id number]] Pre-Hypertensive Follow-up Interventions: Follow-up with rescreen every year.
[2017-03-31] MEDS ORDERED: ONDANSETRON HCL IV 4 MG/2 ML VIAL IV ONE (14:23)
[2017-03-31] MEDS ORDERED: 0.9 % SODIUM CHLORIDE 1,000 ML BAG IV ONE ×2 (14:23→16:37)
[2017-03-31] MEDS ORDERED: PROMETHAZINE HCL 25 MG/ML VIAL IVP ONE (14:47)
[2017-03-31 14:54] LABS: BASO % 0.4 % (0-6); EOS % 5.2 % (0-6); GRAN % 68.1 % (47-80); HEMATOCRIT 41.8 % (35.0-47.0); HEMOGLOBIN 13.7 gm/dl (11.6-16.0); LYMPH % 22.1 % (16-45); MEAN CELL VOLUME 96.1 fl (81-97); MEAN CORPUSCULAR HEMOGLOBIN 31.5 pg (27-33); MEAN CORPUSCULAR HGB CONC 32.8 g/dl (32-36); MEAN PLATELET VOLUME 10.1 fl (7.4-10.4); MONO % 4.2 % (0-9); PLATELET COUNT 258 K/uL (130-400); RED BLOOD COUNT 4.35 M/uL (3.80-5.40); RED CELL DISTRIBUTION WIDTH 13.5 % (11.5-14.5)
[2017-03-31 15:06] LABS: ACETAMINOPHEN < 10.0 ug/mL (10.0-30.0); ALB/GLOB RATIO 1.3 (1.1-1.8); ALBUMIN 4.6 gm/dL (3.5-5.0); ALKALINE PHOSPHATASE 81 U/L (38-126); ALT/SGPT 168 U/L (9-52); ANION GAP 9.6 (7-16); AST/SGOT 95 U/L (14-36); BILIRUBIN,TOTAL 0.88 mg/dL (0.2-1.3); BLOOD UREA NITROGEN 10 mg/dL (7-17); CARBON DIOXIDE 28.4 mmol/L (22-30); CREATININE 0.7 mg/dL (0.52-1.04); EST GLOMERULAR FILTRATION RATE > 60 ml/min; GLUCOSE,RANDOM 95 mg/dL (70-110); TOTAL PROTEIN 8.1 gm/dL (6.3-8.2)
[2017-03-31 15:39] LABS: URINE APPEARANCE CLEAR; URINE BILIRUBIN NEGATIVE (NEGATIVE); URINE BLOOD NEGATIVE (NEGATIVE); URINE COLOR YELLOW; URINE GLUCOSE (UA) NEGATIVE (NEGATIVE); URINE KETONE NEGATIVE (NEGATIVE); URINE LEUKOCYTE ESTERASE NEGATIVE (NEGATIVE); URINE NITRITE NEGATIVE (NEGATIVE); URINE PROTEIN NEGATIVE (NEGATIVE); URINE UROBILINOGEN 0.2 E.U./dL (0.20 - 1.00)
[2017-03-31 15:44] LABS: BENZODIAZEPINE SCREEN URINE DETECTED; OPIATE SCREEN URINE DETECTED; TRICYCLIC ANTIDEPRESSANT SCRN DETECTED
[2017-03-31 15:45] LABS: AMPHETAMINE SCREEN URINE NOT DETECTED; BARBITURATE SCREEN URINE NOT DETECTED; COCAINE SCREEN URINE NOT DETECTED; METHADONE SCREEN URINE NOT DETECTED; METHAMPHETAMINE SCREEN NOT DETECTED; OXYCODONE SCREEN URINE NOT DETECTED; PHENCYCLIDINE SCREEN URINE NOT DETECTED; PROPOXYPHENE SCREEN URINE NOT DETECTED; THC SCREEN URINE NOT DETECTED
[2017-03-31 15:49] LABS: SALICYLATE < 1.0 mg/dL (2.8-20.0)
[2017-03-31] MEDS ORDERED: ALPRAZOLAM 0.25 MG TABLET PO PRN (18:04)
[2017-03-31] MEDS ORDERED: ALBUTEROL SULFATE (0.083%) 2.5 MG/3 ML NEB INH PRN (18:04)
[2017-03-31] MEDS: PROMETHAZINE HCL 25 MG/ML VIAL IVP PRN (21:58)
[2017-03-31] MEDS ORDERED: CLONIDINE HCL 0.1 MG TABLET PO SCH (22:00)
[2017-03-31] MEDS ORDERED: HYDROCODONE/APAP 5/325MG TABLET PO SCH (22:00)
[2017-04-01] MEDS: 0.9 % SODIUM CHLORIDE 1000ML 1,000 ML IV PRN ×2 (01:06→07:38)
[2017-04-01 06:30] LABS: BASO % 0.6 % (0-6); EOS % 5.7 % (0-6); HEMATOCRIT 42.1 % (35.0-47.0); HEMOGLOBIN 13.5 gm/dl (11.6-16.0); LYMPH % 26.4 % (16-45); MEAN CELL VOLUME 96.6 fl (81-97); MEAN CORPUSCULAR HGB CONC 32.1 g/dl (32-36); MEAN PLATELET VOLUME 10.1 fl (7.4-10.4); MONO % 4.3 % (0-9); PLATELET COUNT 237 K/uL (130-400); RED BLOOD COUNT 4.36 M/uL (3.80-5.40); RED CELL DISTRIBUTION WIDTH 13.6 % (11.5-14.5); WHITE BLOOD COUNT W/O DIFF 11.1 K/uL (4.2-12.2)
[2017-04-01 06:39] LABS: ALB/GLOB RATIO 1.1 (1.1-1.8); ALBUMIN 3.6 gm/dL (3.5-5.0); ALKALINE PHOSPHATASE 77 U/L (38-126); ALT/SGPT 140 U/L (9-52); ANION GAP 9.5 (7-16); AST/SGOT 92 U/L (14-36); BILIRUBIN,TOTAL 1.08 mg/dL (0.2-1.3); BLOOD UREA NITROGEN 9 mg/dL (7-17); CARBON DIOXIDE 22.5 mmol/L (22-30); CREATININE 0.7 mg/dL (0.52-1.04); EST GLOMERULAR FILTRATION RATE > 60 ml/min; GLUCOSE,RANDOM 97 mg/dL (70-110); TOTAL PROTEIN 6.8 gm/dL (6.3-8.2)
[2017-04-01] MEDS ORDERED: LEVOTHYROXINE SODIUM 25 MCG TABLET PO SCH (07:00)
[2017-04-01] MEDS ORDERED: ALPRAZOLAM 1 MG TAB PO PRN (08:15)
[2017-04-01] MEDS ORDERED: ALBUTEROL SULFATE (0.083%) 2.5 MG/3 ML NEB INH PRN (09:45)
[2017-04-01] MEDS ORDERED: ESCITALOPRAM 10 MG TABLET PO SCH (10:00)
--- NOTE | 2017-04-01 10:00 | History & Physical ---
History of Present Illness - Date of Service Date of Service for History & Physical: 04/01/17 - History of Present Illness Admitting Diagnosis: 1. Kevil Toxicity History of Present Illness: 37 y/o female with CC mild tremors, nausea, anxiety and restlessness admitted for Kevil toxicity. Past medical history includes asthma, bronchitis, pneumonia, PE, DVT, HTN, high cholesterol, fatty liver disease, thyroid disease , panic disorder, depression, bipolar type 1, ADD, iron deficiency anemia Past Surgical History cholecystectomy sclera buckle oral surgery x 2 hysterectomy Prior to admission had been feeling more depressed than usual due to stressors with a new significant other and chronic relational dynamics with her mother for the previous 2 weeks. About 3 days ago self increased her lithium dose to 1200 mg twice daily from her usual dosing of 600mg twice daily and took increased dose for about 3 days. Since the increase in dose has been experiencing mild tremors, nausea, anxiety and restlessness. Has increased Kevil dosing on her own before for worsening of depression but has never increased it by this much. Is a current patient with [facility] [place], next appointment is June 17, 2017. Denies any SI/HI ideations. Had not intention of harming herself with increasing the dose of her Kevil. While in the ED was started on IV hydration, initial Kevil level 2.6 as confirmed by [facility]. EKG with no acute changes. Renal functio normal. Admitted for IV hydration and Kevil level monitoring, symptom management. Laboratory Results WBC 11.1 K/uL (4.2-12.2) 04/01/17 06:19 RBC 4.36 M/uL (3.80-5.40) 04/01/17 06:19 Hgb 13.5 gm/dl (11.6-16.0) 04/01/17 06:19 Hct 42.1 % (35.0-47.0) 04/01/17 06:19 MCV 96.6 fl (81-97) 04/01/17 06:19 MCH 31.0 pg (27-33) 04/01/17 06:19 MCHC 32.1 g/dl (32-36) 04/01/17 06:19 RDW 13.6 % (11.5-14.5) 04/01/17 06:19 Plt Count 237 K/uL (130-400) 04/01/17 06:19 MPV 10.1 fl (7.4-10.4) 04/01/17 06:19 Gran % 63.0 % (47-80) 04/01/17 06:19 Lymphocytes % 26.4 % (16-45) 04/01/17 06:19 Monocytes % 4.3 % (0-9) 04/01/17 06:19 Eosinophils % 5.7 % (0-6) 04/01/17 06:19 Basophils % 0.6 % (0-6) 04/01/17 06:19 Sodium 140 mmol/L (136-145) 04/01/17 06:19 Potassium 4.0 mmol/L (3.5-5.1) 04/01/17 06:19 Chloride 108 mmol/L (98-107) H 04/01/17 06:19 Carbon Dioxide 22.5 mmol/L (22-30) 04/01/17 06:19 Anion Gap 9.5 (7-16) 04/01/17 06:19 BUN 9 mg/dL (7-17) 04/01/17 06:19 Creatinine 0.7 mg/dL (0.52-1.04) 04/01/17 06:19 Estimated GFR > 60 ml/min 04/01/17 06:19 Random Glucose 97 mg/dL (70-110) 04/01/17 06:19 Calcium 9.3 mg/dL (8.5-10.1) 04/01/17 06:19 Total Bilirubin 1.08 mg/dL (0.2-1.3) 04/01/17 06:19 AST 92 U/L (14-36) H 04/01/17 06:19 ALT 140 U/L (9-52) H 04/01/17 06:19 Alkaline Phosphatase 77 U/L (38-126) 04/01/17 06:19 Total Protein 6.8 gm/dL (6.3-8.2) 04/01/17 06:19 Albumin 3.6 gm/dL (3.5-5.0) 04/01/17 06:19 Globulin 3.2 gm/dL (1.4-4.8) 04/01/17 06:19 Albumin/Globulin Ratio 1.1 (1.1-1.8) 04/01/17 06:19 Urine Color Yellow 03/31/17 15:35 Urine Appearance Clear 03/31/17 15:35 Urine pH 7.5 (5.0-8.0) 03/31/17 15:35 Ur Specific [place] 1.015 (1.002-1.030) 03/31/17 15:35 Urine Protein Negative (NEGATIVE) 03/31/17 15:35 Urine Glucose (UA) Negative (NEGATIVE) 03/31/17 15:35 Urine Ketones Negative (NEGATIVE) 03/31/17 15:35 Urine Blood Negative (NEGATIVE) 03/31/17 15:35 Urine Nitrite Negative (NEGATIVE) 03/31/17 15:35 Urine Bilirubin Negative (NEGATIVE) 03/31/17 15:35 Urine Urobilinogen 0.2 E.U./dL (0.20 - 1.00) 03/31/17 15:35 Ur Leukocyte Esterase Negative (NEGATIVE) 03/31/17 15:35 Salicylates < 1.0 mg/dL (2.8-20.0) L 03/31/17 14:48 Urine Opiates Screen Detected 03/31/17 15:35 Ur Oxycodone Screen Not detected 03/31/17 15:35 Urine Methadone Screen Not detected 03/31/17 15:35 Ur Propoxyphene Screen Not detected 03/31/17 15:35 Acetaminophen < 10.0 ug/mL (10.0-30.0) L 03/31/17 14:48 Ur Barbituates Screen Not detected 03/31/17 15:35 Ur Tricyclics Screen Detected 03/31/17 15:35 Ur Phencyclidine Scrn Not detected 03/31/17 15:35 Ur Amphetamine Screen Not detected 03/31/17 15:35 U Methamphetamines Scrn Not detected 03/31/17 15:35 U Benzodiazepines Scrn Detected 03/31/17 15:35 Urine Cocaine Screen Not detected 03/31/17 15:35 Urine Cannabis Screen Not detected 03/31/17 15:35 Vital Signs - Last 24 Hrs Temp Pulse Pulse Resp BP BP Pulse Ox 04/01/17 09:00 98 F 73 14 108/69 97 04/01/17 05:00 97.6 F 75 18 117/72 97 03/31/17 21:00 70 16 03/31/17 20:04 97.8 F 71 18 119/69 97 03/31/17 18:40 76 16 03/31/17 18:00 98.0 F 73 18 119/79 96 03/31/17 17:30 71 16 123/67 99 03/31/17 17:00 70 16 117/70 98 03/31/17 16:40 97.9 F 74 16 102/57 98 03/31/17 14:10 99.1 F 66 16 122/81 96 04/01/17- Resting in bed comfortably. Tremors have subsided, anxiety has slightly improve, only slight nausea but is tolerating PO intake with no emesis or diarrhea. Denies any further complaint. Reports problems with the significant other have resolved and issues between her and her mother have significantly improved after meeting with her counselor last week. PCP: Yaneli Burgess Psychiatrist: Dr [facility] Therapist- Livia Moody Travel Screening - Travel/Exposure Within Last 30 Days Have you traveled within the last 30 days?: No - Travel/Exposure Within Last Year Have you traveled outside the [place] in the last year?: No - Additonal Travel Details Have you been exposed to anyone with a communicable illness?: No - Travel Symptoms Symptom Screening: None Review of Systems Constitutional: Denies: Chills, Fever Eyes: Denies: Eye discharge ENT: Denies: Congestion Respiratory: Denies: Cough, Dyspnea Past Medical History - SOCIAL HISTORY Smoking Status: Former smoker Alcohol Use: None Drug Use: None - RESPIRATORY Hx Respiratory Disorders: Yes Hx Asthma: Yes Hx Bronchitis: Yes Hx Pneumonia: Yes Hx Pulmonary Embolism: Yes (1 in left and 1 in right) - CARDIOVASCULAR Hx Cardio Disorders: Yes Hx Deep Vein Thrombosis: Yes (4 in RLE) Hx Hypertension: Yes Comment:: high cholestrol - NEURO Hx Neuro Disorders: No - GI Hx GI Disorders: Yes Comment:: fatty liver disease - Hx Genitourinary Disorders: Yes - ENDOCRINE Hx Endocrine Disorders: Yes Hx Thyroid Disease: Yes - MUSCULOSKELETAL Hx Musculoskeletal Disorders: No - PSYCH Hx Psych Problems: Yes Hx Anxiety: Yes (panic disorder) Hx Behavior Problems: Yes Hx Depression: Yes Comment:: Bipolar type 1, ADD - HEMATOLOGY/ONCOLOGY Hx Hematology/Oncology Disorders: Yes Hx Anemia: Yes (iron deficiency) Hx Blood Transfusions: Yes Hx Blood Transfusion Reaction: No Family Medical History Any Significant Family History?: Yes Hx HTN: Father, Mother, Brother/Sister, Grandparents H&P Meds/Allergies - Allergies Allergies: Allergies Allergy/AdvReac Type Severity Reaction Status Date / Time cefuroxime axetil Allergy Intermediate RASH Unverified 02/25/17 19:31 [From Ceftin] clarithromycin [From Biaxin] Allergy Intermediate RASH Unverified 02/25/17 19:31 divalproex sodium Allergy Intermediate ALTERED Unverified 02/25/17 19:31 [From Depakote] MENTAL STATUS gabapentin Allergy Intermediate ALTERED Unverified 02/25/17 19:31 MENTAL STATUS iron Allergy Intermediate ITCHING Unverified 02/25/17 19:31 Penicillins Allergy Intermediate HIVES Unverified 02/25/17 19:31 ondansetron HCl AdvReac Intermediate ALTERED Unverified 02/25/17 19:31 [From Zofran (as MENTAL hydrochloride)] STATUS - Home Medications Home Medications Medication Instructions Recorded Confirmed Last Taken Alprazolam 2 mg PO BID PRN 01/11/15 03/31/17 03/31/17 Escitalopram Oxalate [Lexapro] 20 mg PO DAILY 10/19/15 03/31/17 03/31/17 Clonidine HCl 0.3 mg PO QHS tab 06/20/16 03/31/17 03/31/17 Hydrocodone/Acetaminophen 0.5 tab PO QHS 08/09/16 03/31/17 03/30/17 [Hydrocodon-Acetaminophen 5-325] Kevil Carbonate 300 mg PO BID 12/02/16 03/31/17 03/31/17 Multivitamin [Daily Multiple 1 each PO DAILY 12/02/16 03/31/17 03/31/17 Vitamin] Cholestyramine (with Sugar) 4 gm PO BID 03/31/17 03/31/17 03/31/17 [Cholestyramine Packet] Previous Rx's Medication Instructions Recorded Albuterol Sulfate [Proair Hfa] 1 - 2 puff IH .EVERY 4-6 HOURS PRN 08/09/16 #1 inhaler - Active Medications Active Medications: Current Medications Hydrocodone Bitart/Acetaminophen ([place] 5mg/325mg) 1 each PO QHS ALEJANDRO Last Admin: 03/31/17 21:59 Dose: 1 each Albuterol Sulfate () 2.5 mg INH Q4H PRN PRN Reason: SHORTNESS OF BREATH Alprazolam (Xanax) 1 mg PO BID PRN PRN Reason: ANXIETY Clonidine HCl (Catapres) 0.3 mg PO QHS [facility] Last Admin: 03/31/17 21:59 Dose: 0.3 mg Escitalopram Oxalate (Lexapro) 20 mg PO DAILY [facility] Last Admin: 04/01/17 09:35 Dose: 20 mg Sodium Chloride () 1,000 mls @ 150 mls/hr IV .Q6H40M PRN PRN Reason: LARGE VOLUME IV Last Admin: 04/01/17 07:38 Dose: 150 mls/hr Levothyroxine Sodium (Synthroid) 25 mcg PO DAILYTHY [facility] Last Admin: 04/01/17 06:51 Dose: 25 mcg Promethazine HCl (Phenergan) 12.5 mg IVP Q6H PRN PRN Reason: NAUSEA Last Admin: 03/31/17 21:58 Dose: 12.5 mg Physical Exam - Vital Signs Vital Signs: Vital Signs - Last 24 Hrs Temp Pulse Resp BP Pulse Ox 04/01/17 09:00 98 F 73 14 108/69 97 04/01/17 05:00 97.6 F 75 18 117/72 97 03/31/17 21:00 70 16 03/31/17 20:04 97.8 F 71 18 119/69 97 03/31/17 18:40 76 16 - General General Appearance: Alert, Oriented x3, Cooperative, No acute distress Limitations: No limitations - Head Head exam: Atraumatic, Normocephalic - Eye Eye exam: Normal appearance, PERRL - ENT Throat exam: Normal inspection. negative: Tonsillar erythema, Tonsillar exudate - Neck Neck exam: Normal inspection, Full ROM. negative: Tenderness - Respiratory Respiratory exam: Normal lung sounds bilaterally. negative: Respiratory distress - Cardiovascular Cardiovascular Exam: Regular rate, Normal rhythm, Normal heart sounds Peripheral Pulses: 2+: Dorsalis Pedis (R), Dorsalis Pedis (L) - GI/Abdominal GI/Abdominal exam: Soft, Normal bowel sounds. negative: Tenderness - Extremities Extremities exam: Normal inspection, Full ROM, Normal capillary refill. negative: Tenderness - Back Back exam: Reports: Normal inspection - Neurological Neurological exam: Alert, Normal gait, Oriented X3. negative: Abnormal gait, Motor sensory deficit - Psychiatric Psychiatric exam: negative: Anxious, Depressed - Skin Skin exam: Dry, Intact, Normal color, Warm Results - Labs Result Diagrams: 04/01/17 06:19 04/01/17 06:19 Labs Last 24 Hours: Laboratory Results - last 24 hr 04/01/17 04/01/17 06:19 06:19 WBC 11.1 RBC 4.36 Hgb 13.5 Hct 42.1 MCV 96.6 MCH 31.0 MCHC 32.1 RDW 13.6 Plt Count 237 MPV 10.1 Gran % 63.0 Lymphocytes % 26.4 Monocytes % 4.3 Eosinophils % 5.7 Basophils % 0.6 Sodium 140 Potassium 4.0 Chloride 108 H Carbon Dioxide 22.5 Anion Gap 9.5 BUN 9 Creatinine 0.7 Estimated GFR > 60 Random Glucose 97 Calcium 9.3 Total Bilirubin 1.08 AST 92 H ALT 140 H Alkaline Phosphatase 77 Total Protein 6.8 Albumin 3.6 Globulin 3.2 Albumin/Globulin Ratio 1.1 VTE H&P Assessment - Risk for VTE Risk for VTE: Yes Risk Level: Moderate Risk Assessment Date: 04/01/17 Risk Assessment Time: 11:16 VTE Orders Placed or Will Be Placed: Yes Plan - Detailed Diagnosis and Plan (1) Kevil toxicity Current Visit: Yes Status: Acute Qualifiers: Encounter type: initial encounter Injury intent: accidental or unintentional Qualified Code(s): T56.891A - Toxic effect of other metals, accidental (unintentional), initial encounter Base Code: T56.891A - TOXIC EFFECT OF OTH METALS, ACCIDENTAL (UNINTENTIONAL), INIT Comment: 04/01/17- Kevil level 2.6 03/31/17 in ED. Toxicity symptoms improved since initiating IV hydration. Is established with psychiatrist and therapist in the community. Renal function normal. No neurological concerns. Denies SI/HI. - await today's Kevil level, plan to DC today as long as level is trending down and symptoms continue to improve - she has been tasked to contact psychiatrist to move June 17 appt to within the next 1-2 weeks - she has been advised not to increase any medication dosages unless she contacts her psychiatrist (2) DVT prophylaxis Current Visit: Yes Status: Acute Base Code: [id number] - Comment: 04/01/17- does have hx PE and DVT. No current anticoagulation therapy. Nursing to encourage frequent ambulation (3) Full code status Current Visit: Yes Status: Acute Base Code: Z78.9 - OTHER SPECIFIED HEALTH STATUS Comment: 04/01/17- will remain full code during this hospitalization
--- NOTE | 2017-04-01 14:55 | Discharge Summary ---
Providers Discharge Summary Date: 04/01/17 Date of admission: 03/31/17 18:00 Expected Date of Discharge: 04/01/17 Attending physician: ANDRESSA ROSSI Primary care physician: ANDRESSA ROSSI Physical Exam - Vital Signs Vital Signs: Vital Signs - Last 24 Hrs Temp Pulse Resp BP Pulse Ox 04/01/17 13:00 98.3 F 78 16 96/59 98 04/01/17 09:00 98 F 73 14 108/69 97 04/01/17 05:00 97.6 F 75 18 117/72 97 03/31/17 21:00 70 16 03/31/17 20:04 97.8 F 71 18 119/69 97 03/31/17 18:40 76 16 - General General Appearance: Alert, Oriented x3, Cooperative, No acute distress Limitations: No limitations - Head Head exam: Atraumatic, Normocephalic - Eye Eye exam: Normal appearance, PERRL - ENT Throat exam: Normal inspection. negative: Tonsillar erythema, Tonsillar exudate - Neck Neck exam: Normal inspection, Full ROM. negative: Tenderness - Respiratory Respiratory exam: Normal lung sounds bilaterally. negative: Respiratory distress - Cardiovascular Cardiovascular Exam: Regular rate, Normal rhythm, Normal heart sounds Peripheral Pulses: 2+: Dorsalis Pedis (R), Dorsalis Pedis (L) - GI/Abdominal GI/Abdominal exam: Soft, Normal bowel sounds. negative: Tenderness - Extremities Extremities exam: Normal inspection, Full ROM, Normal capillary refill. negative: Tenderness - Back Back exam: Reports: Normal inspection - Neurological Neurological exam: Alert, Normal gait, Oriented X3. negative: Abnormal gait, Motor sensory deficit - Psychiatric Psychiatric exam: negative: Anxious, Depressed - Skin Skin exam: Dry, Intact, Normal color, Warm Hospitalization - Hospitalization Admission Diagnosis: 1. Quesada Toxicity - Problem List/Discharge Diagnosis (1) Quesada toxicity Current Visit: Yes Status: Acute Discharge Diagnosis: Encounter type: initial encounter Injury intent: accidental or unintentional Qualified Code(s): T56.891A - Toxic effect of other metals, accidental (unintentional), initial encounter Base Code: T56.891A - TOXIC EFFECT OF OTH METALS, ACCIDENTAL (UNINTENTIONAL), INIT Comment: 04/01/17- Quesada level 2.6 03/31/17 in ED. Toxicity symptoms improved since initiating IV hydration. Is established with psychiatrist and therapist in the community. Renal function normal. No neurological concerns. Denies SI/HI. - Quesada level 1.5 today - she has been tasked to contact psychiatrist to move June 17 appt to within the next 1-2 weeks - follow up PCP 1-2 weeks - she has been advised not to increase any medication dosages unless she contacts her psychiatrist - may resume usual dosing of Quesada as per usual home dose ( patient reports 600mg BID) (2) DVT prophylaxis Current Visit: Yes Status: Acute Base Code: [id number] - Comment: 04/01/17- does have hx PE and DVT. No current anticoagulation therapy. Nursing to encourage frequent ambulation (3) Full code status Current Visit: Yes Status: Acute Base Code: Z78.9 - OTHER SPECIFIED HEALTH STATUS Comment: 04/01/17- will remain full code during this hospitalization - Hospitalization Course Disposition: Home, Self-Care Hospital Course: 37 y/o female with CC mild tremors, nausea, anxiety and restlessness admitted for Quesada toxicity. Past medical history includes asthma, bronchitis, pneumonia, PE, DVT, HTN, high cholesterol, fatty liver disease, thyroid disease , panic disorder, depression, bipolar type 1, ADD, iron deficiency anemia Past Surgical History cholecystectomy sclera buckle oral surgery x 2 hysterectomy Prior to admission had been feeling more depressed than usual due to stressors with a new significant other and chronic relational dynamics with her mother for the previous 2 weeks. About 3 days ago self increased her lithium dose to 1200 mg twice daily from her usual dosing of 600mg twice daily and took increased dose for about 3 days. Since the increase in dose has been experiencing mild tremors, nausea, anxiety and restlessness. Has increased Quesada dosing on her own before for worsening of depression but has never increased it by this much. Is a current patient with [facility], next appointment is June 17, 2017. Denies any SI/HI ideations. Had not intention of harming herself with increasing the dose of her Quesada. While in the ED was started on IV hydration, initial Ques[place] level 2.6 as confirmed by [facility]. EKG with no acute changes. Renal functio normal. Admitted for IV hydration and Quesada level monitoring, symptom management. Laboratory Results WBC 11.1 K/uL (4.2-12.2) 04/01/17 06:19 RBC 4.36 M/uL (3.80-5.40) 04/01/17 06:19 Hgb 13.5 gm/dl (11.6-16.0) 04/01/17 06:19 Hct 42.1 % (35.0-47.0) 04/01/17 06:19 MCV 96.6 fl (81-97) 04/01/17 06:19 MCH 31.0 pg (27-33) 04/01/17 06:19 MCHC 32.1 g/dl (32-36) 04/01/17 06:19 RDW 13.6 % (11.5-14.5) 04/01/17 06:19 Plt Count 237 K/uL (130-400) 04/01/17 06:19 MPV 10.1 fl (7.4-10.4) 04/01/17 06:19 Gran % 63.0 % (47-80) 04/01/17 06:19 Lymphocytes % 26.4 % (16-45) 04/01/17 06:19 Monocytes % 4.3 % (0-9) 04/01/17 06:19 Eosinophils % 5.7 % (0-6) 04/01/17 06:19 Basophils % 0.6 % (0-6) 04/01/17 06:19 Sodium 140 mmol/L (136-145) 04/01/17 06:19 Potassium 4.0 mmol/L (3.5-5.1) 04/01/17 06:19 Chloride 108 mmol/L (98-107) H 04/01/17 06:19 Carbon Dioxide 22.5 mmol/L (22-30) 04/01/17 06:19 Anion Gap 9.5 (7-16) 04/01/17 06:19 BUN 9 mg/dL (7-17) 04/01/17 06:19 Creatinine 0.7 mg/dL (0.52-1.04) 04/01/17 06:19 Estimated GFR > 60 ml/min 04/01/17 06:19 Random Glucose 97 mg/dL (70-110) 04/01/17 06:19 Calcium 9.3 mg/dL (8.5-10.1) 04/01/17 06:19 Total Bilirubin 1.08 mg/dL (0.2-1.3) 04/01/17 06:19 AST 92 U/L (14-36) H 04/01/17 06:19 ALT 140 U/L (9-52) H 04/01/17 06:19 Alkaline Phosphatase 77 U/L (38-126) 04/01/17 06:19 Total Protein 6.8 gm/dL (6.3-8.2) 04/01/17 06:19 Albumin 3.6 gm/dL (3.5-5.0) 04/01/17 06:19 Globulin 3.2 gm/dL (1.4-4.8) 04/01/17 06:19 Albumin/Globulin Ratio 1.1 (1.1-1.8) 04/01/17 06:19 Urine Color Yellow 03/31/17 15:35 Urine Appearance Clear 03/31/17 15:35 Urine pH 7.5 (5.0-8.0) 03/31/17 15:35 Ur Specific [place] 1.015 (1.002-1.030) 03/31/17 15:35 Urine Protein Negative (NEGATIVE) 03/31/17 15:35 Urine Glucose (UA) Negative (NEGATIVE) 03/31/17 15:35 Urine Ketones Negative (NEGATIVE) 03/31/17 15:35 Urine Blood Negative (NEGATIVE) 03/31/17 15:35 Urine Nitrite Negative (NEGATIVE) 03/31/17 15:35 Urine Bilirubin Negative (NEGATIVE) 03/31/17 15:35 Urine Urobilinogen 0.2 E.U./dL (0.20 - 1.00) 03/31/17 15:35 Ur Leukocyte Esterase Negative (NEGATIVE) 03/31/17 15:35 Salicylates < 1.0 mg/dL (2.8-20.0) L 03/31/17 14:48 Urine Opiates Screen Detected 03/31/17 15:35 Ur Oxycodone Screen Not detected 03/31/17 15:35 Urine Methadone Screen Not detected 03/31/17 15:35 Ur Propoxyphene Screen Not detected 03/31/17 15:35 Acetaminophen < 10.0 ug/mL (10.0-30.0) L 03/31/17 14:48 Ur Barbituates Screen Not detected 03/31/17 15:35 Ur Tricyclics Screen Detected 03/31/17 15:35 Ur Phencyclidine Scrn Not detected 03/31/17 15:35 Ur Amphetamine Screen Not detected 03/31/17 15:35 U Methamphetamines Scrn Not detected 03/31/17 15:35 U Benzodiazepines Scrn Detected 03/31/17 15:35 Urine Cocaine Screen Not detected 03/31/17 15:35 Urine Cannabis Screen Not detected 03/31/17 15:35 Vital Signs - Last 24 Hrs Temp Pulse Pulse Resp BP BP Pulse Ox 04/01/17 09:00 98 F 73 14 108/69 97 04/01/17 05:00 97.6 F 75 18 117/72 97 03/31/17 21:00 70 16 03/31/17 20:04 97.8 F 71 18 119/69 97 03/31/17 18:40 76 16 03/31/17 18:00 98.0 F 73 18 119/79 96 03/31/17 17:30 71 16 123/67 99 03/31/17 17:00 70 16 117/70 98 03/31/17 16:40 97.9 F 74 16 102/57 98 03/31/17 14:10 99.1 F 66 16 122/81 96 04/01/17- Resting in bed comfortably. Tremors have subsided, anxiety has slightly improve, only slight nausea but is tolerating PO intake with no emesis or diarrhea. Denies any further complaint. Reports problems with the significant other have resolved and issues between her and her mother have significantly improved after meeting with her counselor last week. PCP: Yaneli Burgess Psychiatrist: Dr [facility] Therapist- Livia Moody Abnormal Labs: Abnormal Lab Results 04/01/17 04/01/17 Range/Units 06:19 06:19 Chloride 108 H (98-107) mmol/L AST 92 H (14-36) U/L ALT 140 H (9-52) U/L [place] 1.5 H (0.5-1.2) mmol/L Condition at Discharge: (2) Stable Discharge Medications - Discharge Medications Home Medications: Ambulatory Orders Alprazolam 2 mg PO BID PRN 01/11/15 [Last Taken 03/31/17] Escitalopram Oxalate [Lexapro] 20 mg PO DAILY 10/19/15 [Last Taken 03/31/17] Clonidine HCl 0.3 mg PO QHS tab 10/06/16 [Last Taken 03/31/17] Albuterol Sulfate [Proair Hfa] 1 - 2 puff IH .EVERY 4-6 HOURS PRN #1 inhaler [Last Taken 03/31/17] Hydrocodone/Acetaminophen [Hydrocodon-Acetaminophen 5-325] 0.5 tab PO QHS [Last Taken 03/30/17] [place] Carbonate 300 mg PO BID 12/02/16 [Last Taken 03/31/17] Multivitamin [Daily Multiple Vitamin] 1 each PO DAILY 12/02/16 [Last Taken 03/31] Cholestyramine (with Sugar) [Cholestyramine Packet] 4 gm PO BID 03/31/17 [Last Taken 03/31/17] Discharge Plan - Discharge Instructions Activity at Discharge: Increase Activity as Tolerated, Return To Work Once Cleared By Your PCP/Specialist Diet at Discharge: Regular Diet
[2017-04-01] MEDS: PROMETHAZINE HCL 25 MG/ML VIAL IVP PRN (15:00)
== END 2017-04-01 15:35 | disposition home or self-care (01) ==
LOC: ER 13:19 → MEDSURG 18:00
PROVIDERS: ADMIT Family Medicine; ATTEND Family Medicine
DX: T43.591A Poisoning by other antipsychotics and neuroleptics, accidental (unintentional), initial encounter (principal); R45.1 Restlessness and agitation; F31.9 Bipolar disorder, unspecified; E03.9 Hypothyroidism, unspecified; K76.0 Fatty (change of) liver, not elsewhere classified; J45.909 Unspecified asthma, uncomplicated; Z86.718 Personal history of other venous thrombosis and embolism; E78.00 Pure hypercholesterolemia, unspecified; Z78.9 Other specified health status; I10 Essential (primary) hypertension
CPT/HCPCS: 80053; 80178; 80305; 80329; 81003; 85025; 93005; 93010; 93041; 96361; 96374; 99220; 99285; J2550; J7030

== ENCOUNTER 2017-05-03 20:21 | Emergency (ER) | payer MEDICAID ==
[2017-05-03] MEDS ORDERED: HYOSCYAMINE SULFATE ODT 0.125 MG TAB.SUBL SL ONE (20:35)
[2017-05-03] MEDS ORDERED: ONDANSETRON 4 MG ODT TABLET SL ONE (20:36)
--- NOTE | 2017-05-03 20:39 | Emergency Department Record ---
History of Present Illness - General Chief Complaint: Abdominal Pain Stated Complaint: ABD PAIN Time Seen by Provider: 05/03/17 20:25 Source: Patient Mode of Arrival: Ambulatory Limitations: No limitations - History of Present Illness Initial Comments: 37 yo female presents to ED with a CC of diffuse abdominal pain and nausea symptoms that began 1 hour prior to arrival. Patient reports that the pain radiates to her back bilaterally. Patient reports taking phenergan at home for her nausea symptoms. Patient denies recent illness, fevers, chills, dysuria, or change in stools. Patient denies vomiting symptoms. Patient denies previous abdominal surgery other than hysterectomy 1 year ago resulting in "chronic pain". MD Complaint: Abdominal pain Onset/Timin -: Minutes(s) Location: Diffuse Radiation: Back Severity: Moderate Quality: Fullness Consistency: Constant Improves With: Nothing Worsens With: Movement Associated Symptoms: Nausea, Vomiting Treatments Prior to Arrival: Other - Related Data Home Medications Medication Instructions Recorded Confirmed Last Taken Alprazolam 2 mg PO BID PRN 01/11/15 05/03/17 05/03/17 Escitalopram Oxalate [Lexapro] 20 mg PO DAILY 10/19/15 05/03/17 05/03/17 Clonidine HCl 0.3 mg PO QHS tab 06/20/16 05/03/17 05/03/17 Hydrocodone/Acetaminophen 0.5 tab PO QHS 08/09/16 05/03/17 05/03/17 [Hydrocodon-Acetaminophen 5-325] [place] Carbonate 300 mg PO BID 12/02/16 05/03/17 05/03/17 Multivitamin [Daily Multiple 1 each PO DAILY 12/02/16 05/03/17 05/03/17 Vitamin] Previous Rx's Medication Instructions Recorded Albuterol Sulfate [Proair Hfa] 1 - 2 puff IH .EVERY 4-6 HOURS PRN 08/09/16 #1 inhaler Hyoscyamine Sulfate [Levsin-Sl] 0.25 mg SL Q8H PRN #15 tab.subl 05/03/17 Allergies Allergy/AdvReac Type Severity Reaction Status Date / Time cefuroxime axetil Allergy Intermediate RASH Verified 05/03/17 20:31 [From Ceftin] clarithromycin [From Biaxin] Allergy Intermediate RASH Verified 05/03/17 20:32 divalproex sodium Allergy Intermediate ALTERED Verified 05/03/17 20:33 [From Depakote] MENTAL STATUS gabapentin Allergy Intermediate ALTERED Verified 05/03/17 20:33 MENTAL STATUS iron Allergy Intermediate ITCHING Verified 05/03/17 20:33 Penicillins Allergy Intermediate HIVES Verified 05/03/17 20:34 ondansetron HCl AdvReac Intermediate ALTERED Verified 05/03/17 20:31 [From Zofran (as MENTAL hydrochloride)] STATUS Travel Screening - Travel/Exposure Within Last 30 Days Have you traveled within the last 30 days?: No - Travel/Exposure Within Last Year Have you traveled outside the [place] in the last year?: No - Additonal Travel Details Have you been exposed to anyone with a communicable illness?: No Review of Systems Constitutional: Denies: Chills, Fever, Malaise, Night sweats Eyes: Denies: Eye discharge, Eye pain ENT: Denies: Congestion, Ear pain, Epistaxis Respiratory: Denies: Cough, Dyspnea Cardiovascular: Denies: Chest pain, Dyspnea on exertion Endocrine: Denies: Fatigue, Heat or cold intolerance Gastrointestinal: Reports: Abdominal pain, Nausea. Denies: Constipation, Vomiting Genitourinary: Denies: Incontinence, Retention Musculoskeletal: Reports: Back pain. Denies: Arthralgia, Gout, Joint swelling Skin: Denies: Bruising, Change in color Neurological: Denies: Abnormal gait, Confusion, Headache, Seizure Psychiatric: Denies: Anxiety Hematological/Lymphatic: Denies: Anemia, Blood Clots Past Medical History - SOCIAL HISTORY Smoking Status: Former smoker Alcohol Use: None Drug Use: None - RESPIRATORY Hx Respiratory Disorders: Yes Hx Asthma: Yes Hx Bronchitis: Yes Hx Pneumonia: Yes Hx Pulmonary Embolism: Yes (1 in left and 1 in right) - CARDIOVASCULAR Hx Cardio Disorders: Yes Hx Deep Vein Thrombosis: Yes (4 in RLE) Hx Hypertension: Yes Comment:: high cholestrol - NEURO Hx Neuro Disorders: No - GI Hx GI Disorders: Yes Comment:: fatty liver disease - Hx Genitourinary Disorders: Yes - ENDOCRINE Hx Endocrine Disorders: Yes Hx Thyroid Disease: Yes - MUSCULOSKELETAL Hx Musculoskeletal Disorders: No - PSYCH Hx Psych Problems: Yes Hx Anxiety: Yes (panic disorder) Hx Behavior Problems: Yes Hx Depression: Yes Comment:: Bipolar type 1, ADD - HEMATOLOGY/ONCOLOGY Hx Hematology/Oncology Disorders: Yes Hx Anemia: Yes (iron deficiency) Hx Blood Transfusions: Yes Hx Blood Transfusion Reaction: No Family Medical History Any Significant Family History?: Yes Hx HTN: Father, Mother, Brother/Sister, Grandparents Physical Exam - General General Appearance: Alert, Oriented x3, Cooperative, No acute distress Limitations: No limitations - Head Head exam: Atraumatic, Normocephalic, Normal inspection Head exam detail: negative: Abrasion, Contusion, Grijalva's sign, General tenderness, Hematoma, Laceration - Eye Eye exam: Normal appearance. negative: Conjunctival injection, Periorbital swelling, Periorbital tenderness, Scleral icterus - ENT Ear exam: negative: Auricular hematoma, Auricular trauma Nasal Exam: negative: Active bleeding, Discharge, Dried blood, Foreign body Mouth exam: negative: Drooling, Laceration, Muffled voice, Tongue elevation - Neck Neck exam: Normal inspection. negative: Meningismus, Tenderness - Respiratory Respiratory exam: Normal lung sounds bilaterally. negative: Rales, Respiratory distress, Rhonchi, Stridor - Cardiovascular Cardiovascular Exam: Regular rate, Normal rhythm, Normal heart sounds - GI/Abdominal GI/Abdominal exam: Soft, Tenderness (mild, diffuse TTP on examination without rebound, guarding, or peritoneal signs.). negative: Rebound, Rigid - Rectal Rectal exam: Deferred - exam: Deferred - Extremities Extremities exam: Normal inspection. negative: Calf tenderness, Pedal edema, Tenderness - Back Back exam: Denies: CVA tenderness (R), CVA tenderness (L) - Neurological Neurological exam: Alert, Normal gait, Oriented X3 - Psychiatric Psychiatric exam: Normal affect, Normal mood - Skin Skin exam: Normal color. negative: Abrasion Type of lesion: negative: abrasion Course Vital Signs 05/03/17 20:24 Temperature 98.4 F Pulse Rate 91 H Respiratory 20 Rate Blood Pressure 141/93 Pulse Ox 96 - Reevaluation(s) Reevaluation #1: 05/03/17 20:[address] Abdomen and Pelvis reviewed 07/14/16: No acute process. Reevaluation #2: 05/03/17 21:55 Labs reviewed, mild elevation in AST/ALT, labs are otherwise grossly unremarkable for an acute process. Reevaluation #3: 05/03/17 22:05 Patient reassessed, appears comfortable on her phone and smiling, reports that she feels "terrible". Patient and family were updated on all results, will administer Toradol for her symptoms and reassess. CT imaging does not appear indicated based on the patient's clinical examination and reassuring laboratory results. Will treat symptomatically at home with Levsin for her abdominal pain symptoms. 05/03/17 23:47 Medical Decision Making - Lab Data Result diagrams: 05/03/17 20:45 05/03/17 20:45 Disposition Disposition: Discharge Clinical Impression: Abdominal pain Qualifiers: Abdominal location: generalized Qualified Code(s): R10.84 - Generalized abdominal pain Disposition: Home, Self-Care Condition: (2) Stable Instructions: Abdominal Pain (ED) Additional Instructions: Return to ED if your symptoms worsen or if you have any concerns. Follow-up with your family doctor in 1-3 days as directed. Levsin as directed for pain. Prescriptions: Hyoscyamine Sulfate [Levsin-Sl] 0.25 mg SL Q8H PRN #15 tab.subl PRN Reason: Abdominal Pain Forms: Patient Portal Access Time of Disposition: 22:07 Quality - Quality Measures Quality Measures: N/A - Blood Pressure Screening Does Patient Have Any of the Following: No Blood Pressure Classification: Pre-Hypertensive BP Reading Systolic Measurement: 134 Diastolic Measurement: 79 Screening for High Blood Pressure: < Pre-Hypertensive BP, F/U Documented > [ G8950] Pre-Hypertensive Follow-up Interventions: Referral to alternative/primary care provider.
[2017-05-03 21:03] LABS: BASO % 0.7 % (0-6); EOS % 4.4 % (0-6); GRAN % 56.8 % (47-80); HEMATOCRIT 39.7 % (35.0-47.0); HEMOGLOBIN 12.9 gm/dl (11.6-16.0); LYMPH % 32.4 % (16-45); MEAN CELL VOLUME 95.7 fl (81-97); MEAN CORPUSCULAR HEMOGLOBIN 31.1 pg (27-33); MEAN CORPUSCULAR HGB CONC 32.5 g/dl (32-36); MEAN PLATELET VOLUME 10.2 fl (7.4-10.4); MONO % 5.7 % (0-9); PLATELET COUNT 244 K/uL (130-400); RED BLOOD COUNT 4.15 M/uL (3.80-5.40); RED CELL DISTRIBUTION WIDTH 13.8 % (11.5-14.5); WHITE BLOOD COUNT W/O DIFF 9.5 K/uL (4.2-12.2)
[2017-05-03 21:23] LABS: URINE APPEARANCE CLEAR; URINE COLOR YELLOW
[2017-05-03 21:24] LABS: URINE BILIRUBIN NEGATIVE (NEGATIVE); URINE BLOOD TRACE-LYSED (NEGATIVE); URINE GLUCOSE (UA) NEGATIVE (NEGATIVE); URINE KETONE NEGATIVE (NEGATIVE); URINE LEUKOCYTE ESTERASE NEGATIVE (NEGATIVE); URINE NITRITE NEGATIVE (NEGATIVE); URINE PROTEIN NEGATIVE (NEGATIVE); URINE UROBILINOGEN 0.2 E.U./dL (0.20 - 1.00)
[2017-05-03 21:25] LABS: URINE AMORPHOUS SEDIMENT 1+; URINE EPITHELIAL CELLS 0 - 2 (FEW); URINE RBC 0 - 2 (NONE SEEN); URINE WBC 0 - 2 (0-2/hpf)
[2017-05-03 21:34] LABS: ALB/GLOB RATIO 1.3 (1.1-1.8); ALBUMIN 4.2 gm/dL (3.5-5.0); ALKALINE PHOSPHATASE 60 U/L (38-126); ALT/SGPT 190 U/L (9-52); AST/SGOT 128 U/L (14-36); BILIRUBIN,TOTAL 0.57 mg/dL (0.2-1.3); BLOOD UREA NITROGEN 7 mg/dL (7-17); CREATININE 0.6 mg/dL (0.52-1.04); EST GLOMERULAR FILTRATION RATE > 60 ml/min; GLUCOSE,RANDOM 133 mg/dL (70-110); LIPASE 46 U/L (23-300); TOTAL PROTEIN 7.4 gm/dL (6.3-8.2)
[2017-05-03] MEDS ORDERED: KETOROLAC 30 MG/ML VIAL IM ONE (22:05)
== END 2017-05-03 22:30 | disposition home or self-care (01) ==
LOC: ER 20:21
DX: R10.84 Generalized abdominal pain (principal); R11.2 Nausea with vomiting, unspecified
CPT/HCPCS: 99283; 96372; 99284; 83690; 85025; 80053; 81001; 81025; J1980; J1885

== ENCOUNTER 2017-05-18 22:20 | Emergency (ER) | payer MEDICAID ==
[2017-05-18] MEDS ORDERED: METHYLPREDNISOLONE PF 125MG/VIAL IM ONE (23:04)
[2017-05-18] MEDS ORDERED: DIPHENHYDRAMINE HCL IV 50 MG/ML VIAL IM ONE (23:04)
--- NOTE | 2017-05-18 23:50 | Emergency Department Record ---
History of Present Illness - General Chief complaint: Allergic Reaction Stated complaint: REACTION TO PAIN MEDS Time Seen by Provider: 05/18/17 23:04 Mode of Arrival: Ambulatory - History of Present Illness Initial Comments: pt took vicoprofen and broke with itchy rash Complaint: Hives Onset/Timin -: Hour(s) Exposure: Medication Symptoms: Itching Severity: Mild Treatment Prior to Arrival: None Previous Allergy History: None - Related Data Home Medications Medication Instructions Recorded Confirmed Last Taken Hydrocodone/Ibuprofen 1 tab PO ASDIR PRN 05/18/17 05/18/17 05/18/17 20:00 [Hydrocodone-Ibuprofen 5-200 mg] Previous Rx's Medication Instructions Recorded Albuterol Sulfate [Proair Hfa] 1 - 2 puff IH .EVERY 4-6 HOURS PRN 08/09/16 #1 inhaler Hyoscyamine Sulfate [Levsin-Sl] 0.25 mg SL Q8H PRN #15 tab.subl 05/03/17 Allergies Allergy/AdvReac Type Severity Reaction Status Date / Time cefuroxime axetil Allergy Intermediate RASH Verified 05/18/17 22:34 [From Ceftin] clarithromycin [From Biaxin] Allergy Intermediate RASH Verified 05/18/17 22:34 divalproex sodium Allergy Intermediate ALTERED Verified 05/18/17 22:34 [From Depakote] MENTAL STATUS gabapentin Allergy Intermediate ALTERED Verified 05/18/17 22:34 MENTAL STATUS iron Allergy Intermediate ITCHING Verified 05/18/17 22:34 Penicillins Allergy Intermediate HIVES Verified 05/18/17 22:34 ondansetron HCl AdvReac Intermediate ALTERED Verified 05/18/17 22:34 [From Zofran (as MENTAL hydrochloride)] STATUS Travel Screening - Travel/Exposure Within Last 30 Days Have you traveled within the last 30 days?: No - Travel/Exposure Within Last Year Have you traveled outside the [place] in the last year?: No - Additonal Travel Details Have you been exposed to anyone with a communicable illness?: No - Travel Symptoms Symptom Screening: None Review of Systems Reviewed: No additional complaints except as noted below Constitutional: Reports: As per HPI. Denies: Chills, Fever, Malaise, Night sweats, Weakness, Weight change Eyes: Reports: As per HPI. Denies: Eye discharge, Eye pain, Photophobia, Vision change ENT: Reports: As per HPI. Denies: Congestion, Dental pain, Ear pain, Epistaxis , Hearing loss, Throat pain Respiratory: Reports: As per HPI. Denies: Cough, Dyspnea, Hemoptysis, Stridor, Wheezes Cardiovascular: Reports: As per HPI. Denies: Arrhythmia, Chest pain, Dyspnea on exertion, Edema, Murmurs, Orthopnea, Palpitations, Paroxysmal nocturnal dyspnea, Rheumatic Fever, Syncope Endocrine: Reports: As per HPI. Denies: Fatigue, Heat or cold intolerance, Polydipsia, Polyuria Gastrointestinal: Reports: As per HPI. Denies: Abdominal pain, Constipation, Diarrhea, Hematemesis, Hematochezia, Melena, Nausea, Vomiting Genitourinary: Reports: As per HPI. Denies: Abnormal menses, Discharge, Dyspareunia, Dysuria, Frequency, Hematuria, Incontinence, Retention, Urgency Musculoskeletal: Reports: As per HPI. Denies: Arthralgia, Back pain, Gout, Joint swelling, Myalgia, Neck pain Skin: Reports: As per HPI. Denies: Bruising, Change in color, Change in hair/ nails, Lesions, Pruritus, Rash Neurological: Reports: As per HPI. Denies: Abnormal gait, Confusion, Headache, Numbness, Paresthesias, Seizure, Tingling, Tremors, Vertigo, Weakness Psychiatric: Reports: As per HPI. Denies: Anxiety, Auditory hallucinations, Depression, Homicidal thoughts, Suicidal thoughts, Visual hallucinations Hematological/Lymphatic: Reports: As per HPI. Denies: Anemia, Blood Clots, Easy bleeding, Easy bruising, Swollen glands Past Medical History - SOCIAL HISTORY Smoking Status: Former smoker Alcohol Use: None Drug Use: None - RESPIRATORY Hx Respiratory Disorders: Yes Hx Asthma: Yes Hx Bronchitis: Yes Hx Pneumonia: Yes Hx Pulmonary Embolism: Yes (1 in left and 1 in right) - CARDIOVASCULAR Hx Cardio Disorders: Yes Hx Deep Vein Thrombosis: Yes (4 in RLE) Hx Hypertension: Yes Comment:: high cholestrol - NEURO Hx Neuro Disorders: No - GI Hx GI Disorders: Yes Comment:: fatty liver disease - Hx Genitourinary Disorders: Yes - ENDOCRINE Hx Endocrine Disorders: Yes Hx Thyroid Disease: Yes - MUSCULOSKELETAL Hx Musculoskeletal Disorders: No - PSYCH Hx Psych Problems: Yes Hx Anxiety: Yes (panic disorder) Hx Behavior Problems: Yes Hx Depression: Yes Comment:: Bipolar type 1, ADD - HEMATOLOGY/ONCOLOGY Hx Hematology/Oncology Disorders: Yes Hx Anemia: Yes (iron deficiency) Hx Blood Transfusions: Yes Hx Blood Transfusion Reaction: No Family Medical History Any Significant Family History?: No Hx HTN: Father, Mother, Brother/Sister, Grandparents Physical Exam - General General Appearance: Alert, Oriented x3, Cooperative, No acute distress - Head Head exam: Normal inspection - Eye Eye exam: Normal appearance, PERRL, EOMI Pupils: Normal accommodation - ENT ENT exam: Normal exam, Mucous membranes moist, Normal external ear exam, Normal orophraynx Ear exam: Normal external inspection. negative: External canal tenderness Nasal Exam: Normal inspection. negative: Discharge, Sinus tenderness Mouth exam: Normal external inspection, Tongue normal Teeth exam: Normal inspection. negative: Dental caries Throat exam: Normal inspection. negative: Tonsillar erythema, Tonsillar exudate - Neck Neck exam: Normal inspection, Full ROM. negative: Tenderness - Respiratory Respiratory exam: Normal lung sounds bilaterally. negative: Respiratory distress - Cardiovascular Cardiovascular Exam: Regular rate, Normal rhythm, Normal heart sounds - GI/Abdominal GI/Abdominal exam: Soft, Normal bowel sounds. negative: Tenderness - Rectal Rectal exam: Deferred - exam: Deferred - Extremities Extremities exam: Normal inspection, Full ROM, Normal capillary refill. negative: Tenderness - Back Back exam: Reports: Normal inspection, Full ROM. Denies: Muscle spasm, Rash noted, Tenderness - Neurological Neurological exam: Alert, CN II-XII intact, Normal gait, Oriented X3 - Psychiatric Psychiatric exam: Normal affect, Normal mood - Skin Skin exam: Dry, Intact, Normal color, Urticaria, Warm Distribution of rash: Abdomen, Face Description of rash: Urticarial Course Vital Signs 05/18/17 05/18/17 22:33 23:29 Temperature 98.9 F 98.9 F Pulse Rate [ 105 H 93 H Pulse Ox Probe] Respiratory 18 18 Rate Blood Pressure 142/99 129/78 [Left Arm] Pulse Ox 96 96 - Reevaluation(s) Reevaluation #1: 05/18/17 23:46 pt is doing better Disposition Disposition: Discharge Clinical Impression: Urticaria Disposition: Home, Self-Care Condition: (1) Good Instructions: Urticaria (ED), Cold Compress or Soak (ED) Additional Instructions: follow up with family doctor. return sooner if worse. continue benadryl as needed every 6 hours. stop vicoprofen Forms: Patient Portal Access Quality - Quality Measures Quality Measures: N/A - Blood Pressure Screening Does Patient Have Any of the Following: No Blood Pressure Classification: Pre-Hypertensive BP Reading Systolic Measurement: 129 Diastolic Measurement: 78 Screening for High Blood Pressure: < Pre-Hypertensive BP, F/U Documented > [ G8950] Pre-Hypertensive Follow-up Interventions: Follow-up with rescreen every year.
== END 2017-05-19 00:06 | disposition home or self-care (01) ==
LOC: ER 22:20
DX: L50.0 Allergic urticaria (principal); T39.315A Adverse effect of propionic acid derivatives, initial encounter
CPT/HCPCS: 96372; 99283; J1200; J2930

== ENCOUNTER 2017-05-26 19:08 | Emergency (ER) | payer MEDICAID ==
--- NOTE | 2017-05-26 19:32 | Emergency Department Record ---
History of Present Illness - General Chief complaint: Rash Stated complaint: SHINGLES ? Time Seen by Provider: 05/26/17 19:27 Source: Patient Mode of Arrival: Ambulatory Limitations: No limitations - History of Present Illness Initial comments: 37 yo female presents to ED with a CC of worsening rash symptoms for the past 1.5 weeks. Patient reports redness, itching, and pain from the rash. Patient reports being seen 1 week ago at [facility] for her symptoms, started on Prednisone which she took for two days and stopped as it "was not helping". Patient also reports seeing Dr. Can's PA 4 days ago without any further recommendations. Patient denies fevers, chills, or recent illness, and the patient denies history of auto-immune disease processes. MD complaint: Rash Onset/Timin -: Days(s) Hx Tetanus Toxoid Vaccination: No Location: Face, R hand, Genitals Severity: Moderate Quality: Burning Consistency: Constant Improves with: None Worsens with: None Context: None Associated symptoms: Denies other symptoms Treatments Prior to Arrival: Corticosteroid - Related Data Previous Rx's Medication Instructions Recorded Albuterol Sulfate [Proair Hfa] 1 - 2 puff IH .EVERY 4-6 HOURS PRN 08/09/16 #1 inhaler Prednisone [Prednisone 20Mg] 20 mg PO BID #21 tab 05/26/17 Allergies Allergy/AdvReac Type Severity Reaction Status Date / Time cefuroxime axetil Allergy Intermediate RASH Unverified 05/22/17 14:11 [From Ceftin] clarithromycin [From Biaxin] Allergy Intermediate RASH Unverified 05/22/17 14:11 divalproex sodium Allergy Intermediate ALTERED Unverified 05/22/17 14:11 [From Depakote] MENTAL STATUS gabapentin Allergy Intermediate ALTERED Unverified 05/22/17 14:11 MENTAL STATUS iron Allergy Intermediate ITCHING Unverified 05/22/17 14:11 Penicillins Allergy Intermediate HIVES Unverified 05/22/17 14:11 ondansetron HCl AdvReac Intermediate ALTERED Unverified 05/22/17 14:11 [From Zofran (as MENTAL hydrochloride)] STATUS Review of Systems Constitutional: Denies: Chills, Fever, Malaise, Night sweats Eyes: Denies: Eye discharge, Eye pain ENT: Denies: Congestion, Ear pain, Epistaxis Respiratory: Denies: Cough, Dyspnea Cardiovascular: Denies: Chest pain, Dyspnea on exertion Endocrine: Denies: Fatigue, Heat or cold intolerance Gastrointestinal: Denies: Abdominal pain, Nausea, Vomiting Genitourinary: Denies: Frequency, Incontinence, Retention Musculoskeletal: Denies: Arthralgia, Back pain, Gout, Joint swelling Skin: Reports: Rash. Denies: Bruising, Change in color Neurological: Denies: Abnormal gait, Confusion, Headache Psychiatric: Denies: Anxiety Hematological/Lymphatic: Denies: Anemia, Blood Clots Past Medical History - SOCIAL HISTORY Smoking Status: Former smoker Drug Use: None - RESPIRATORY Hx Respiratory Disorders: Yes Hx Asthma: Yes Hx Bronchitis: Yes Hx Pneumonia: Yes Hx Pulmonary Embolism: Yes (1 in left and 1 in right) - CARDIOVASCULAR Hx Cardio Disorders: Yes Hx Deep Vein Thrombosis: Yes (4 in RLE) Hx Hypertension: Yes Comment:: high cholestrol - NEURO Hx Neuro Disorders: No - GI Hx GI Disorders: Yes Comment:: fatty liver disease - Hx Genitourinary Disorders: Yes - ENDOCRINE Hx Endocrine Disorders: Yes Hx Thyroid Disease: Yes - MUSCULOSKELETAL Hx Musculoskeletal Disorders: No - PSYCH Hx Psych Problems: Yes Hx Anxiety: Yes (panic disorder) Hx Behavior Problems: Yes Hx Depression: Yes Comment:: Bipolar type 1, ADD - HEMATOLOGY/ONCOLOGY Hx Hematology/Oncology Disorders: Yes Hx Anemia: Yes (iron deficiency) Hx Blood Transfusions: Yes Hx Blood Transfusion Reaction: No Family Medical History Hx HTN: Father, Mother, Brother/Sister, Grandparents Physical Exam - General General Appearance: Alert, Oriented x3, Cooperative, Mild distress Limitations: No limitations - Head Head exam: Atraumatic, Normocephalic, Normal inspection Head exam detail: negative: Abrasion, Contusion, Grijalva's sign, General tenderness, Hematoma, Laceration - Eye Eye exam: Normal appearance. negative: Conjunctival injection, Periorbital swelling, Periorbital tenderness, Scleral icterus - ENT Ear exam: negative: Auricular hematoma, Auricular trauma Nasal Exam: negative: Active bleeding, Discharge, Dried blood, Foreign body Mouth exam: negative: Drooling, Laceration, Muffled voice, Tongue elevation - Neck Neck exam: Normal inspection. negative: Meningismus, Tenderness - Respiratory Respiratory exam: Normal lung sounds bilaterally. negative: Respiratory distress, Rhonchi, Stridor, Wheezes - Cardiovascular Cardiovascular Exam: Regular rate, Normal rhythm, Normal heart sounds - GI/Abdominal GI/Abdominal exam: Soft. negative: Rebound, Rigid, Tenderness - Rectal Rectal exam: Deferred - exam: Deferred - Extremities Extremities exam: Other (Blistering between the fingers of the right ring and middle digits with erythema present, vesicular lesions c/w contact dermatitis to the left hand between the small and ring fingers). negative: Calf tenderness , Pedal edema, Tenderness - Back Back exam: Denies: CVA tenderness (R), CVA tenderness (L) - Neurological Neurological exam: Alert, Normal gait, Oriented X3 - Psychiatric Psychiatric exam: Normal affect, Normal mood - Skin Skin exam: Erythema, Rash Type of lesion: Rash Course - Reevaluation(s) Reevaluation #1: 05/26/17 19:33 There is erythema and induration to the right inguinal region as well as mild edema/blotching to the right face. Given the described rash on jose fingers, symptoms appear c/w contact dermatitis. I encouraged the patient to restart Prednisone as she only took the medication for 48 hours and to follow-up with Dr. Can for further evaluation in 5-7 days. Disposition Disposition: Discharge Clinical Impression: Contact dermatitis Disposition: Home, Self-Care Condition: (2) Stable Instructions: Contact Dermatitis (ED) Additional Instructions: Return to ED if your symptoms worsen or if you have any concerns. Prednisone as directed. Follow-up with Dr. Can in 5-7 days as directed. Prescriptions: Prednisone [Prednisone 20Mg] 20 mg PO BID #21 tab Forms: Patient Portal Access Time of Disposition: 19:37 Quality - Quality Measures Quality Measures: N/A - Blood Pressure Screening Does Patient Have Any of the Following: No Blood Pressure Classification: Hypertensive Reading Systolic Measurement: 156 Diastolic Measurement: 76 Screening for High Blood Pressure: < First Hypertensive BP, F/U Documented > [ G8950] First Hypertensive Follow-up Interventions: Referral to alternative/primary care provider.
== END 2017-05-26 19:46 | disposition home or self-care (01) ==
LOC: ER 19:08
DX: L25.9 Unspecified contact dermatitis, unspecified cause (principal)
CPT/HCPCS: 99282

== ENCOUNTER 2017-07-20 01:50 | Emergency (ER) | payer MEDICAID ==
--- NOTE | 2017-07-20 01:29 | Emergency Department Record ---
History of Present Illness - General Chief Complaint: Fall Injury Stated Complaint: FALL Time Seen by Provider: 07/20/17 01:04 EST Source: Patient Mode of Arrival: Ambulatory Limitations: No limitations - History of Present Illness Initial Comments: pt fell 3 days ago landing on l hip and leg and outstretched hands. pt fell because the sciatica in her r leg made her leg give out. since the fall she has contd to have pain and the sciatica is worse. she denies numbness, no problems with bladder and bowel control. MD Complaint: Fall Onset/Timin -: Days(s) Fall From: Down stairs (#) Fall Witnessed: No Place Fall Occurred: Home Loss of Consciousness: None Prolonged Down Time?: No Symptoms Prior to Fall: None Location - Extremities: Left: Hand, Thigh, Right: Hand Severity scale (1-10): 9 Quality: Aching Context: Tripped/slipped Associated Symptoms: Denies - Maximus Coma Scale Eye Response: (4) Open spontaneously Motor Response: (6) Obeys commands Verbal Response: (5) Oriented [place] Total: 15 - Related Data Home Medications Medication Instructions Recorded Confirmed Last Taken Fluoxetine HCl [Prozac] 20 mg PO DAILY 07/20/17 07/20/17 Unknown Previous Rx's Medication Instructions Recorded Albuterol Sulfate [Proair Hfa] 1 - 2 puff IH .EVERY 4-6 HOURS PRN 08/09/16 #1 inhaler Cyclobenzaprine HCl [Flexeril] 10 mg PO TID #14 tablet 07/20/17 Hydrocodone/Acetaminophen [[place] 1 each PO QID #10 tablet 07/20/17 5-325 Tablet] Ibuprofen [Motrin] 800 mg PO Q8H PRN #20 tab 07/20/17 Allergies Allergy/AdvReac Type Severity Reaction Status Date / Time cefuroxime axetil Allergy Intermediate RASH Unverified 06/26/17 16:26 [From Ceftin] clarithromycin [From Biaxin] Allergy Intermediate RASH Unverified 06/26/17 16:26 divalproex sodium Allergy Intermediate ALTERED Unverified 06/26/17 16:26 [From Depakote] MENTAL STATUS gabapentin Allergy Intermediate ALTERED Unverified 06/26/17 16:26 MENTAL STATUS iron Allergy Intermediate ITCHING Unverified 06/26/17 16:26 Penicillins Allergy Intermediate HIVES Unverified 06/26/17 16:26 ondansetron HCl AdvReac Intermediate ALTERED Unverified 06/26/17 16:26 [From Zofran (as MENTAL hydrochloride)] STATUS Travel Screening - Travel/Exposure Within Last 30 Days Have you traveled within the last 30 days?: No Review of Systems Reviewed: No additional complaints except as noted below Constitutional: Reports: As per HPI. Denies: Chills, Fever, Malaise, Night sweats, Weakness, Weight change Eyes: Reports: As per HPI. Denies: Eye discharge, Eye pain, Photophobia, Vision change ENT: Reports: As per HPI. Denies: Congestion, Dental pain, Ear pain, Epistaxis , Hearing loss, Throat pain Respiratory: Reports: As per HPI. Denies: Cough, Dyspnea, Hemoptysis, Stridor, Wheezes Cardiovascular: Reports: As per HPI. Denies: Arrhythmia, Chest pain, Dyspnea on exertion, Edema, Murmurs, Orthopnea, Palpitations, Paroxysmal nocturnal dyspnea, Rheumatic Fever, Syncope Endocrine: Reports: As per HPI. Denies: Fatigue, Heat or cold intolerance, Polydipsia, Polyuria Gastrointestinal: Reports: As per HPI. Denies: Abdominal pain, Constipation, Diarrhea, Hematemesis, Hematochezia, Melena, Nausea, Vomiting Genitourinary: Reports: As per HPI. Denies: Abnormal menses, Discharge, Dyspareunia, Dysuria, Frequency, Hematuria, Incontinence, Retention, Urgency Musculoskeletal: Reports: As per HPI. Denies: Arthralgia, Back pain, Gout, Joint swelling, Myalgia, Neck pain Skin: Reports: As per HPI. Denies: Bruising, Change in color, Change in hair/ nails, Lesions, Pruritus, Rash Neurological: Reports: As per HPI. Denies: Abnormal gait, Confusion, Headache, Numbness, Paresthesias, Seizure, Tingling, Tremors, Vertigo, Weakness Psychiatric: Reports: As per HPI. Denies: Anxiety, Auditory hallucinations, Depression, Homicidal thoughts, Suicidal thoughts, Visual hallucinations Hematological/Lymphatic: Reports: As per HPI. Denies: Anemia, Blood Clots, Easy bleeding, Easy bruising, Swollen glands Past Medical History - SOCIAL HISTORY Smoking Status: Former smoker Alcohol Use: None Drug Use: None - RESPIRATORY Hx Respiratory Disorders: Yes Hx Asthma: Yes Hx Bronchitis: Yes Hx Pneumonia: Yes Hx Pulmonary Embolism: Yes (1 in left and 1 in right) - CARDIOVASCULAR Hx Cardio Disorders: Yes Hx Deep Vein Thrombosis: Yes (4 in RLE) Hx Hypertension: Yes Comment:: high cholestrol - NEURO Hx Neuro Disorders: No - GI Hx GI Disorders: Yes Comment:: fatty liver disease - Hx Genitourinary Disorders: Yes - ENDOCRINE Hx Endocrine Disorders: Yes Hx Thyroid Disease: Yes - MUSCULOSKELETAL Hx Musculoskeletal Disorders: No - PSYCH Hx Psych Problems: Yes Hx Anxiety: Yes (panic disorder) Hx Behavior Problems: Yes Hx Depression: Yes Comment:: Bipolar type 1, ADD - HEMATOLOGY/ONCOLOGY Hx Hematology/Oncology Disorders: Yes Hx Anemia: Yes (iron deficiency) Hx Blood Transfusions: Yes Hx Blood Transfusion Reaction: No Family Medical History Any Significant Family History?: Yes Hx HTN: Father, Mother, Brother/Sister, Grandparents Physical Exam - General General Appearance: Alert, Oriented x3, Cooperative, Mild distress - Head Head exam: Normal inspection - Eye Eye exam: Normal appearance, PERRL, EOMI Pupils: Normal accommodation - ENT ENT exam: Normal exam, Mucous membranes moist, Normal external ear exam, Normal orophraynx Ear exam: Normal external inspection. negative: External canal tenderness Nasal Exam: Normal inspection. negative: Discharge, Sinus tenderness Mouth exam: Normal external inspection, Tongue normal Teeth exam: Normal inspection. negative: Dental caries Throat exam: Normal inspection. negative: Tonsillar erythema, Tonsillar exudate - Neck Neck exam: Normal inspection, Full ROM. negative: Tenderness - Respiratory Respiratory exam: Normal lung sounds bilaterally. negative: Respiratory distress - Cardiovascular Cardiovascular Exam: Regular rate, Normal rhythm, Normal heart sounds - GI/Abdominal GI/Abdominal exam: Soft, Normal bowel sounds. negative: Tenderness - Rectal Rectal exam: Deferred - exam: Deferred - Extremities Extremities exam: Normal inspection, Full ROM, Normal capillary refill, Tenderness - Back Back exam: Reports: Normal inspection, Full ROM. Denies: Muscle spasm, Rash noted, Tenderness - Neurological Neurological exam: Alert, CN II-XII intact, Normal gait, Oriented X3 - Psychiatric Psychiatric exam: Normal affect, Normal mood - Skin Skin exam: Dry, Intact, Normal color, Warm Course Vital Signs 07/20/17 01:57 EDT Temperature 97.5 F L Pulse Rate [ 83 Pulse Ox Probe] Respiratory 20 Rate Blood Pressure 147/86 [Left Arm] Pulse Ox 95 Disposition Disposition: Discharge Clinical Impression: Multiple contusions Sciatica Qualifiers: Laterality: right Qualified Code(s): M54.31 - Sciatica, right side Fall Qualifiers: Encounter type: initial encounter Qualified Code(s): W19.XXXA - Unspecified fall, initial encounter Disposition: Home, Self-Care Condition: (1) Good Instructions: Sciatica (ED), Lower Back Exercises (ED), Contusion in Adults (ED ) Additional Instructions: folllow up with family doctor. return sooner if worse. ice to sore areas Prescriptions: Cyclobenzaprine HCl [Flexeril] 10 mg PO TID #14 tablet Hydrocodone/Acetaminophen [[place] 5-325 Tablet] 1 each PO QID #10 tablet Ibuprofen [Motrin] 800 mg PO Q8H PRN #20 tab PRN Reason: Pain - Moderate (5-7) Forms: Patient Portal Access Quality - Quality Measures Quality Measures: N/A - Blood Pressure Screening Does Patient Have Any of the Following: No Blood Pressure Classification: Pre-Hypertensive BP Reading Systolic Measurement: 147 Diastolic Measurement: 86 Screening for High Blood Pressure: < Pre-Hypertensive BP, F/U Documented > [ G8950] Pre-Hypertensive Follow-up Interventions: Follow-up with rescreen every year.
[~2017-07-20 01:50] MED LIST: HYDROCODONE/APAP 5/325MG TABLET PO ONE; KETOROLAC 30 MG/ML VIAL IM ONE; ORPHENADRINE CITRATE 60MG/2ML VIAL IM ONE
[2017-07-20] MEDS ORDERED: HYDROCODONE/APAP 5/325MG TABLET PO ONE (02:07)
== END 2017-07-20 02:30 | disposition home or self-care (01) ==
LOC: ER 01:50
DX: S70.02XA Contusion of left hip, initial encounter (principal); S70.12XA Contusion of left thigh, initial encounter; S60.222A Contusion of left hand, initial encounter; S60.221A Contusion of right hand, initial encounter; M54.31 Sciatica, right side; W10.9XXA Fall (on) (from) unspecified stairs and steps, initial encounter; Y92.009 Unspecified place in unspecified non-institutional (private) residence as the place of occurrence of the external cause
CPT/HCPCS: 99283 ×2; 96372; J1885; J2360

== ENCOUNTER 2017-07-25 17:40 | Emergency (ER) | payer MEDICAID ==
--- NOTE | 2017-07-25 18:33 | Emergency Department Record ---
History of Present Illness - General Chief Complaint: Knee injury Stated Complaint: KNEE INJURY Time Seen by Provider: 07/25/17 18:25 Source: Patient Mode of Arrival: Ambulatory Limitations: No limitations - History of Present Illness Initial Comments: 37 yo female presents with right knee pain. She fell about 1.5 weeks ago. The knee began to hurt shortly there after. No history of knee surgery. No warmth or redness. She has pain with walking and weight bearing. The pain is greatest over the patella and just distal. No calf swelling. No ankle or hip pain. MD Complaint: Knee injury Onset/Timin -: Days(s) Injury: Knee: Right Type of Injury: Unknown, Other (fall) Severity: Severe Severity scale (1-10): 8 Worsens With: Movement, Palpation, Weight bearing Context: Fall Associated Symptoms: Able to partially bear weight - Related Data Previous Rx's Medication Instructions Recorded Albuterol Sulfate [Proair Hfa] 1 - 2 puff IH .EVERY 4-6 HOURS PRN 08/09/16 #1 inhaler Cyclobenzaprine HCl [Flexeril] 10 mg PO TID #14 tablet 07/20/17 Hydrocodone/Acetaminophen [[place] 1 each PO QID #10 tablet 07/20/17 5-325 Tablet] Ibuprofen [Motrin] 800 mg PO Q8H PRN #20 tab 07/20/17 Hydrocodone/Acetaminophen [[place] 1 each PO Q8H #12 tablet 07/25/17 5-325 Tablet] Allergies Allergy/AdvReac Type Severity Reaction Status Date / Time cefuroxime axetil Allergy Intermediate RASH Unverified 06/26/17 16:26 [From Ceftin] clarithromycin [From Biaxin] Allergy Intermediate RASH Unverified 06/26/17 16:26 divalproex sodium Allergy Intermediate ALTERED Unverified 06/26/17 16:26 [From Depakote] MENTAL STATUS gabapentin Allergy Intermediate ALTERED Unverified 06/26/17 16:26 MENTAL STATUS iron Allergy Intermediate ITCHING Unverified 06/26/17 16:26 Penicillins Allergy Intermediate HIVES Unverified 06/26/17 16:26 ondansetron HCl AdvReac Intermediate ALTERED Unverified 06/26/17 16:26 [From Zofran (as MENTAL hydrochloride)] STATUS Travel Screening - Travel/Exposure Within Last 30 Days Have you traveled within the last 30 days?: No Review of Systems Constitutional: Denies: Chills, Fever, Weakness Eyes: Denies: Eye discharge ENT: Denies: Congestion, Throat pain Respiratory: Denies: Cough, Dyspnea, Hemoptysis, Wheezes Cardiovascular: Denies: Chest pain, Syncope Endocrine: Denies: Fatigue Gastrointestinal: Denies: Abdominal pain, Diarrhea, Nausea, Vomiting Genitourinary: Denies: Dysuria, Urgency Musculoskeletal: Reports: As per HPI, Arthralgia, Myalgia. Denies: Neck pain Skin: Denies: Bruising, Change in color, Rash Neurological: Denies: Abnormal gait, Confusion, Headache, Numbness, Tingling, Tremors, Weakness Psychiatric: Denies: Anxiety Hematological/Lymphatic: Denies: Blood Clots, Easy bleeding, Easy bruising, Swollen glands Past Medical History - SOCIAL HISTORY Smoking Status: Former smoker Alcohol Use: None Drug Use: None - RESPIRATORY Hx Respiratory Disorders: Yes Hx Asthma: Yes Hx Bronchitis: Yes Hx Pneumonia: Yes Hx Pulmonary Embolism: Yes (1 in left and 1 in right) - CARDIOVASCULAR Hx Cardio Disorders: Yes Hx Deep Vein Thrombosis: Yes (4 in RLE) Hx Hypertension: Yes Comment:: high cholestrol - NEURO Hx Neuro Disorders: No - GI Hx GI Disorders: Yes Comment:: fatty liver disease - Hx Genitourinary Disorders: Yes - ENDOCRINE Hx Endocrine Disorders: Yes Hx Thyroid Disease: Yes - MUSCULOSKELETAL Hx Musculoskeletal Disorders: No - PSYCH Hx Psych Problems: Yes Hx Anxiety: Yes (panic disorder) Hx Behavior Problems: Yes Hx Depression: Yes Comment:: Bipolar type 1, ADD - HEMATOLOGY/ONCOLOGY Hx Hematology/Oncology Disorders: Yes Hx Anemia: Yes (iron deficiency) Hx Blood Transfusions: Yes Hx Blood Transfusion Reaction: No Family Medical History Any Significant Family History?: Yes Hx HTN: Father, Mother, Brother/Sister, Grandparents Physical Exam - General General Appearance: Alert, Oriented x3, Cooperative, No acute distress Limitations: No limitations - Head Head exam: Atraumatic, Normal inspection - Eye Eye exam: Normal appearance, PERRL. negative: Conjunctival injection, Periorbital swelling - ENT ENT exam: Normal exam, Mucous membranes moist Ear exam: Normal external inspection Nasal Exam: Normal inspection Mouth exam: Normal external inspection - Neck Neck exam: Normal inspection. negative: Tenderness - Respiratory Respiratory exam: Normal lung sounds bilaterally. negative: Respiratory distress - Cardiovascular Cardiovascular Exam: Regular rate, Normal rhythm, Normal heart sounds - GI/Abdominal GI/Abdominal exam: Soft. negative: Tenderness - Rectal Rectal exam: Deferred - exam: Deferred - Extremities Extremities exam: Normal inspection, Full ROM, Tenderness. negative: Pedal edema Image of Full Body: 1 - No definite swelling, no warmth or redness, tender inferior and medial, no tenderness lateral, no calf tenderness, no ankle tenderness, no hip tenderness - Back Back exam: Reports: Normal inspection, Full ROM. Denies: CVA tenderness (R), CVA tenderness (L), Muscle spasm, Rash noted, Tenderness - Neurological Neurological exam: Alert, Oriented X3. negative: Altered, Motor sensory deficit - Psychiatric Psychiatric exam: Normal affect, Normal mood. negative: Agitated, Anxious - Skin Skin exam: Dry, Intact, Normal color, Warm. negative: Erythema Course Vital Signs 07/25/17 17:45 Temperature 98.3 F Pulse Rate 103 H Respiratory 16 Rate Blood Pressure 143/95 Pulse Ox 100 - Reevaluation(s) Reevaluation #1: The XR was reviewed No acute fracture, possible small effusion 07/25/17 18:34 Disposition Disposition: Discharge Clinical Impression: Right knee sprain Qualifiers: Encounter type: initial encounter Involved ligament of knee: other ligament Qualified Code(s): S83.8X1A - Sprain of other specified parts of right knee, initial encounter Disposition: Home, Self-Care Condition: (1) Good Instructions: Knee Sprain (ED) Additional Instructions: Ice and elevate Use the crutches or immobilizer for support Call your doctor for close follow up You may need further testing if the pain continues Prescriptions: Hydrocodone/Acetaminophen [[place] 5-325 Tablet] 1 each PO Q8H #12 tablet Forms: Patient Portal Access Time of Disposition: 18:36 Quality - Quality Measures Quality Measures: N/A - Blood Pressure Screening Does Patient Have Any of the Following: No Blood Pressure Classification: Hypertensive Reading Systolic Measurement: 143 Diastolic Measurement: 95 Screening for High Blood Pressure: < Pre-Hypertensive BP, F/U Documented > [ G0423] Pre-Hypertensive Follow-up Interventions: Referral to alternative/primary care provider.
--- NOTE | 2017-07-26 12:52 | RADIOLOGY REPORT ---
DATE: 07/25/2017 at 6:05 p.m. EXAM: RIGHT KNEE. HISTORY: Fell a week and a half ago with pain in the right knee since. TECHNIQUE: Four views of the right knee. COMPARISON: None. ENCOUNTER: Initial. FINDINGS: No definite fracture or dislocation of the right knee identified. There may be a joint effusion present. IMPRESSION: POSSIBLE JOINT EFFUSION. NO DEFINITE FRACTURE OF THE RIGHT KNEE IDENTIFIED. JOB NUMBER: [id number] MTDD
== END 2017-07-25 19:11 | disposition home or self-care (01) ==
LOC: ER 17:40
DX: S83.8X1A Sprain of other specified parts of right knee, initial encounter (principal); W19.XXXA Unspecified fall, initial encounter
CPT/HCPCS: 99283

== ENCOUNTER 2017-08-07 20:15 | Emergency (ER) | payer MEDICAID ==
[2017-08-07] MEDS ORDERED: KETOROLAC 30 MG/ML VIAL IM ONE (20:24)
--- NOTE | 2017-08-07 20:25 | Emergency Department Record ---
History of Present Illness - General Chief complaint: Pain Stated complaint: PAIN IN RT SHOULDER Time Seen by Provider: 08/07/17 20:16 Source: Patient Mode of Arrival: Ambulatory Limitations: No limitations - History of Present Illness Initial comments: 37 yo female presents with right shoulder pain for a few months. No preceding injury. No warmth or redness. She has pain with lifting. No weakness. She has pain with raising arm above her head. She saw her PCP and had a steroid shot without improvement. No history of shoulder surgery. MD Complaint: Joint pain -: Month(s) Location: Right -: Yes Myalgia Radiation: Proximal Quality: Aching Consistency: Constant Improves with: Immobilization Worsens with: Exertion, Palpation, Weight bearing Associated Symptoms: Denies other symptoms, Arthralgias (only right shoulder) - Related Data Home Medications Medication Instructions Recorded Confirmed Last Taken Biotin 1 mg PO DAILY 08/07/17 08/07/17 Unknown L.acidoph,Paracasei, B.lactis 1 each PO DAILY 08/07/17 08/07/17 Unknown [Probiotic] Previous Rx's Medication Instructions Recorded Albuterol Sulfate [Proair Hfa] 1 - 2 puff IH .EVERY 4-6 HOURS PRN 08/09/16 #1 inhaler Cyclobenzaprine HCl [Flexeril] 10 mg PO TID #14 tablet 07/20/17 Hydrocodone/Acetaminophen [[place] 1 each PO Q8H #12 tablet 08/07/17 5-325 Tablet] Allergies Allergy/AdvReac Type Severity Reaction Status Date / Time cefuroxime axetil Allergy Intermediate RASH Unverified 06/26/17 16:26 [From Ceftin] clarithromycin [From Biaxin] Allergy Intermediate RASH Unverified 06/26/17 16:26 divalproex sodium Allergy Intermediate ALTERED Unverified 06/26/17 16:26 [From Depakote] MENTAL STATUS gabapentin Allergy Intermediate ALTERED Unverified 06/26/17 16:26 MENTAL STATUS hydrocodone bitartrate Allergy Intermediate HIVES Unverified 07/30/17 09:16 [From Vicoprofen] ibuprofen [From Vicoprofen] Allergy Intermediate HIVES Unverified 07/30/17 09:16 iron Allergy Intermediate ITCHING Unverified 06/26/17 16:26 Penicillins Allergy Intermediate HIVES Unverified 06/26/17 16:26 ondansetron HCl AdvReac Intermediate ALTERED Unverified 06/26/17 16:26 [From Zofran (as MENTAL hydrochloride)] STATUS Review of Systems Constitutional: Denies: Chills, Fever, Malaise, Weakness Eyes: Denies: Eye discharge ENT: Denies: Congestion, Throat pain Respiratory: Denies: Cough Cardiovascular: Denies: Chest pain, Syncope Endocrine: Denies: Fatigue Gastrointestinal: Denies: Abdominal pain, Diarrhea, Nausea, Vomiting Genitourinary: Denies: Dysuria Musculoskeletal: Reports: As per HPI, Arthralgia Skin: Denies: Bruising, Change in color, Rash Neurological: Denies: Headache, Numbness, Weakness Psychiatric: Denies: Anxiety Hematological/Lymphatic: Denies: Blood Clots, Easy bleeding, Easy bruising, Swollen glands Past Medical History - SOCIAL HISTORY Smoking Status: Former smoker Drug Use: None - RESPIRATORY Hx Respiratory Disorders: Yes Hx Asthma: Yes Hx Bronchitis: Yes Hx Pneumonia: Yes Hx Pulmonary Embolism: Yes (1 in left and 1 in right) - CARDIOVASCULAR Hx Cardio Disorders: Yes Hx Deep Vein Thrombosis: Yes (4 in RLE) Hx Hypertension: Yes Comment:: high cholestrol - NEURO Hx Neuro Disorders: No - GI Hx GI Disorders: Yes Comment:: fatty liver disease - Hx Genitourinary Disorders: Yes - ENDOCRINE Hx Endocrine Disorders: Yes Hx Thyroid Disease: Yes - MUSCULOSKELETAL Hx Musculoskeletal Disorders: No - PSYCH Hx Psych Problems: Yes Hx Anxiety: Yes (panic disorder) Hx Behavior Problems: Yes Hx Depression: Yes Comment:: Bipolar type 1, ADD - HEMATOLOGY/ONCOLOGY Hx Hematology/Oncology Disorders: Yes Hx Anemia: Yes (iron deficiency) Hx Blood Transfusions: Yes Hx Blood Transfusion Reaction: No Family Medical History Hx HTN: Father, Mother, Brother/Sister, Grandparents Physical Exam - General General Appearance: Alert, Oriented x3, Cooperative, No acute distress Limitations: No limitations - Head Head exam: Atraumatic, Normal inspection - Eye Eye exam: Normal appearance. negative: Conjunctival injection, Periorbital swelling - ENT ENT exam: Normal exam, Mucous membranes moist Ear exam: Normal external inspection Nasal Exam: Normal inspection Mouth exam: Normal external inspection - Neck Neck exam: Normal inspection, Full ROM. negative: Tenderness - Respiratory Respiratory exam: Normal lung sounds bilaterally. negative: Respiratory distress - Cardiovascular Cardiovascular Exam: Regular rate, Normal rhythm, Normal heart sounds Peripheral Pulses: 2+: Radial (R) - Rectal Rectal exam: Deferred - exam: Deferred - Extremities Extremities exam: Normal inspection, Full ROM, Normal capillary refill, Tenderness. negative: Joint swelling Image of Full Body: 1 - tendner anterior and lateral, pain with full external rotation and abduction - Back Back exam: Reports: Normal inspection. Denies: CVA tenderness (R), CVA tenderness (L) - Neurological Neurological exam: Alert, Oriented X3 - Psychiatric Psychiatric exam: Normal affect, Normal mood - Skin Skin exam: Dry, Intact, Normal color, Warm Course - Reevaluation(s) Reevaluation #1: 08/07/17 20:44 The XR was reviewed No acute fracture or dislocation calcifications noted in the rotator cuff area Symptoms are consistent with possible rotator cuff tendonitis DC home to follow up with PCP We discussed the findings and possible need for MRI or further work up 08/07/17 21:00 Disposition Disposition: Discharge Clinical Impression: Shoulder pain, right Qualifiers: Chronicity: acute Qualified Code(s): M25.511 - Pain in right shoulder Disposition: Home, Self-Care Condition: (2) Stable Instructions: Rotator Cuff Tendinitis (ED) Additional Instructions: Call your doctor for close follow up to discuss your shoulder pain that is ongoing Ice is sore or swollen Prescriptions: Hydrocodone/Acetaminophen [[place] 5-325 Tablet] 1 each PO Q8H #12 tablet Forms: Patient Portal Access Time of Disposition: 20:45 Quality - Quality Measures Quality Measures: N/A - Blood Pressure Screening Does Patient Have Any of the Following: No Blood Pressure Classification: Hypertensive Reading Systolic Measurement: 149 Diastolic Measurement: 93 Screening for High Blood Pressure: < Pre-Hypertensive BP, F/U Documented > [ G8950] Pre-Hypertensive Follow-up Interventions: Referral to alternative/primary care provider.
[2017-08-07] MEDS ORDERED: HYDROCODONE/APAP 5/325MG TABLET PO ONE (20:56)
--- NOTE | 2017-08-08 08:35 | RADIOLOGY REPORT ---
EXAM: RIGHT SHOULDER HISTORY: RIGHT SHOULDER PAIN RADIATING DOWN ARM TIMES THREE MONTHS. TECHNIQUE: Three views of the right shoulder are provided along with the comparison CT scan of the chest dated 03/13/17. FINDINGS: There is no radiographic evidence of a fracture or dislocation of the right shoulder. No significant soft tissue abnormalities are visualized. There is an osteophyte extending inferiorly from the acromion in the region of the rotator interval. These findings may create chronic degeneration of the rotator cuff. If there is further clinical concern then MRI of the right shoulder can be obtained for further evaluation. Small osseous densities are identified adjacent to the greater tuberosity. This finding may represent degenerative change. IMPRESSION: NO RADIOGRAPHIC EVIDENCE OF AN ACUTE PROCESS INVOLVING THE RIGHT SHOULDER. THERE IS AN OSTEOPHYTE AT THE UNDERSURFACE OF THE ACROMION WHICH MAY CREATE ENCROACHMENT UPON THE ROTATOR CUFF AND CREATE DEGENERATION OF THE ROTATOR CUFF. IF THERE IS FURTHER CLINICAL CONCERN THEN MRI OF THE RIGHT SHOULDER CAN BE OBTAINED FOR FURTHER EVALUATION. JOB NUMBER: [id number] MTDD
== END 2017-08-07 21:01 | disposition home or self-care (01) ==
LOC: ER 20:15
DX: M25.511 Pain in right shoulder (principal)
CPT/HCPCS: 99283; 96372; 99284; 73030; J1885

== ENCOUNTER 2017-11-16 13:33 | Emergency (ER) | payer MEDICAID ==
[2017-11-16] MEDS ORDERED: PROPARACAINE HCL OPTH 15ML BTL OPTH ONE (14:07)
--- NOTE | 2017-11-16 14:25 | Emergency Department Record ---
History of Present Illness - General Chief complaint: Eye Problem Stated complaint: LT EYE IRRATATION Time Seen by Provider: 11/16/17 13:49 Source: Patient Mode of Arrival: Ambulatory Limitations: No limitations Travel/Exposure to [place] Within 21 Days of Symptoms: No - History of Present Illness Initial comments: The patient is here due to sleeping in her contacts accidentally and waking up with pain and redness to the L eye. She is having mild blurred vision. chief complaint: Eye pain, Eye redness Onset/Timin -: Days(s) Onset Description: Sudden Location: Left eye Place: Home If Injury: None Eye Symptoms: Blurry vision, Decreased vision, Discharge, Redness Associated Symptoms: None Treatments Prior to Arrival: None - Related Data Visual acuity (L) = 20/: 70 Visual acuity (R) = 20/: 25 With correction: Yes Hx Tetanus Toxoid Vaccination: No Home Medications Medication Instructions Recorded Confirmed Last Taken Hydrocodone/Acetaminophen [[place] 1 tab PO ASDIR 11/16/17 11/16/17 Unknown 5-325 Tablet] Ibuprofen [Motrin 600Mg] 600 mg PO Q8H 11/16/17 11/16/17 Unknown Previous Rx's Medication Instructions Recorded Albuterol Sulfate [Proair Hfa] 1 - 2 puff IH .EVERY 4-6 HOURS PRN 08/09/16 #1 inhaler Cyclobenzaprine HCl [Flexeril] 10 mg PO TID #14 tablet 07/20/17 Moxifloxacin HCl [Moxifloxacin] 3 ml OP DAILY #1 drops 11/16/17 Allergies Allergy/AdvReac Type Severity Reaction Status Date / Time cefuroxime axetil Allergy Intermediate RASH Verified 11/16/17 13:40 [From Ceftin] clarithromycin [From Biaxin] Allergy Intermediate RASH Verified 11/16/17 13:40 divalproex sodium Allergy Intermediate ALTERED Verified 11/16/17 13:40 [From Depakote] MENTAL STATUS gabapentin Allergy Intermediate ALTERED Verified 11/16/17 13:40 MENTAL STATUS hydrocodone bitartrate Allergy Intermediate HIVES Verified 11/16/17 13:40 [From Vicoprofen] ibuprofen [From Vicoprofen] Allergy Intermediate HIVES Verified 11/16/17 13:40 iron Allergy Intermediate ITCHING Verified 11/16/17 13:40 Penicillins Allergy Intermediate HIVES Verified 11/16/17 13:40 ondansetron HCl AdvReac Intermediate ALTERED Verified 11/16/17 13:40 [From Zofran (as MENTAL hydrochloride)] STATUS Travel Screening - Travel/Exposure Within Last 30 Days Have you traveled within the last 30 days?: No Review of Systems Constitutional: Denies: Chills, Fever Past Medical History - SOCIAL HISTORY Smoking Status: Former smoker Alcohol Use: None Drug Use: None - RESPIRATORY Hx Respiratory Disorders: Yes Hx Asthma: Yes Hx Bronchitis: Yes Hx Pneumonia: Yes Hx Pulmonary Embolism: Yes (1 in left and 1 in right) - CARDIOVASCULAR Hx Cardio Disorders: Yes Hx Deep Vein Thrombosis: Yes (4 in RLE) Hx Hypertension: Yes Comment:: high cholestrol - NEURO Hx Neuro Disorders: No - GI Hx GI Disorders: Yes Comment:: fatty liver disease - Hx Genitourinary Disorders: Yes - ENDOCRINE Hx Endocrine Disorders: Yes Hx Thyroid Disease: Yes - MUSCULOSKELETAL Hx Musculoskeletal Disorders: No - PSYCH Hx Psych Problems: Yes Hx Anxiety: Yes (panic disorder) Hx Behavior Problems: Yes Hx Depression: Yes Comment:: Bipolar type 1, ADD - HEMATOLOGY/ONCOLOGY Hx Hematology/Oncology Disorders: Yes Hx Anemia: Yes (iron deficiency) Hx Blood Transfusions: Yes Hx Blood Transfusion Reaction: No Family Medical History Any Significant Family History?: Yes Hx HTN: Father, Mother, Brother/Sister, Grandparents Physical Exam - General General Appearance: Alert, Cooperative, No acute distress - Head Head exam: Atraumatic, Normocephalic, Normal inspection - Eye Eye exam: PERRL, Conjunctival injection (2+ L eye.), EOMI, Other (The cornea is clear with no definite uptake with flourescein. The anterior chamber is clear.) . negative: Normal appearance, Periorbital swelling, Periorbital tenderness With correction: Yes Course Vital Signs 11/16/17 13:42 Temperature 97.8 F Pulse Rate 93 H Respiratory 20 Rate Blood Pressure 116/92 Pulse Ox 96 - Reevaluation(s) Reevaluation #1: I did explain to the patient the need to see her eye doctor tomorrow for recheck. 11/16/17 14:29 Disposition Disposition: Discharge Clinical Impression: Corneal injury due to contact lens Qualifiers: Laterality: left Qualified Code(s): H18.822 - Corneal disorder due to contact lens, left eye Disposition: Home, Self-Care Condition: (2) Stable Instructions: Corneal Abrasion (ED) Additional Instructions: Please use the antibiotic drops as directed. Please take Tylenol or Motrin for pain and see your eye doctor tomorrow for recheck of your vision and cornea. Prescriptions: Moxifloxacin HCl [Moxifloxacin] 3 ml OP DAILY #1 drops Forms: Patient Portal Access Time of Disposition: 14:25 Quality - Quality Measures Quality Measures: N/A - Blood Pressure Screening View Details: Yes Does Patient Have Any of the Following: No Blood Pressure Classification: Hypertensive Reading Systolic Measurement: 116 Diastolic Measurement: 92 Screening for High Blood Pressure: < First Hypertensive BP, F/U Documented > [ G8950] First Hypertensive Follow-up Interventions: Referral to alternative/primary care provider.
== END 2017-11-16 14:30 | disposition home or self-care (01) ==
LOC: ER 13:33
DX: H18.822 Corneal disorder due to contact lens, left eye (principal); I10 Essential (primary) hypertension; Z87.891 Personal history of nicotine dependence
CPT/HCPCS: 99282

== ENCOUNTER 2017-12-05 17:25 | Emergency (ER) | payer MEDICAID ==
[2017-12-05 19:15] LABS: BASO % 0.6 % (0-6); EOS % 3.7 % (0-6); GRAN % 53.1 % (47-80); HEMATOCRIT 40.3 % (35.0-47.0); HEMOGLOBIN 13.5 gm/dl (11.6-16.0); MEAN CELL VOLUME 93.7 fl (81-97); MEAN CORPUSCULAR HEMOGLOBIN 31.4 pg (27-33); MEAN CORPUSCULAR HGB CONC 33.5 g/dl (32-36); MONO % 5.6 % (0-9); PLATELET COUNT 265 K/uL (130-400); RED CELL DISTRIBUTION WIDTH 13.6 % (11.5-14.5); WHITE BLOOD COUNT W/O DIFF 10.4 K/uL (4.2-12.2)
[2017-12-05 19:24] LABS: BLOOD UREA NITROGEN 6 mg/dL (6-20); CREATININE 0.6 mg/dL (0.5-0.9); EST GLOMERULAR FILTRATION RATE > 60 mL/min
[2017-12-05 19:27] LABS: GLUCOSE,RANDOM 121 mg/dL (74-109)
[2017-12-05 19:30] LABS: INR 1.1; PARTIAL THROMBOPLASTIN TIME 22.9 SECONDS (24.5-39.1); PROTHROMBIN TIME (PATIENT) 11.4 SECONDS (9.5-12.1)
--- NOTE | 2017-12-05 19:45 | Emergency Department Record ---
History of Present Illness - General Chief Complaint: Palpitations Stated Complaint: SHAKY/HEART PALPATIONS Time Seen by Provider: 12/05/17 19:42 Source: Patient Mode of Arrival: Ambulatory - History of Present Illness Initial Comments: The patient states that yesterday it felt like her heart would pause and then do a couple extra beats to catch up about 5 episodes, each lasting only seconds with no other symptoms. Today she states she has had about 20 episodes of the same quality and duration. Around 5 p.m. today she had an episodes of the skipped beats but also had anterior chest pains through to the back "like someone sitting on her lightly." She states that she had a touch of mild shortness of breath earlier, but not now. She also mentioned that she had some shakiness. She denies f,c, smoking, diabetes, but +hypertension. She has had pulmonary embolus in the left and separately in the right lung, as well as DVT's times 4 in the right leg in the past. MD Complaint: Palpitations Onset/Timin -: Days(s) Associated Symptoms: Anxiety - Related Data Home Medications Medication Instructions Recorded Confirmed Last Taken Smock Carbonate [Smock 300 mg PO QHS 12/05/17 12/05/17 1 Day Ago Carbonate ER] ~12/04/17 Smock Carbonate [Smock 600 mg PO QAM 12/05/17 12/05/17 1 Day Ago Carbonate ER] ~12/04/17 Previous Rx's Medication Instructions Recorded Albuterol Sulfate [Proair Hfa] 1 - 2 puff IH .EVERY 4-6 HOURS PRN 08/09/16 #1 inhaler Cyclobenzaprine HCl [Flexeril] 10 mg PO TID #14 tablet 07/20/17 Allergies Allergy/AdvReac Type Severity Reaction Status Date / Time cefuroxime axetil Allergy Intermediate RASH Verified 12/05/17 18:31 [From Ceftin] clarithromycin [From Biaxin] Allergy Intermediate RASH Verified 12/05/17 18:31 divalproex sodium Allergy Intermediate ALTERED Verified 12/05/17 18:31 [From Depakote] MENTAL STATUS gabapentin Allergy Intermediate ALTERED Verified 12/05/17 18:31 MENTAL STATUS hydrocodone bitartrate Allergy Intermediate HIVES Verified 12/05/17 18:31 [From Vicoprofen] ibuprofen [From Vicoprofen] Allergy Intermediate HIVES Verified 12/05/17 18:31 iron Allergy Intermediate ITCHING Verified 12/05/17 18:31 Penicillins Allergy Intermediate HIVES Verified 12/05/17 18:31 ondansetron HCl AdvReac Intermediate ALTERED Verified 12/05/17 18:31 [From Zofran (as MENTAL hydrochloride)] STATUS Travel Screening - Travel/Exposure Within Last 30 Days Have you traveled within the last 30 days?: No - Travel/Exposure Within Last Year Have you traveled outside the [place] in the last year?: No - Additonal Travel Details Have you been exposed to anyone with a communicable illness?: No - Travel Symptoms Symptom Screening: None Review of Systems Reviewed: No additional complaints except as noted below Constitutional: Reports: As per HPI. Denies: Chills, Fever, Malaise, Night sweats, Weakness, Weight change Eyes: Reports: As per HPI. Denies: Eye discharge, Eye pain, Photophobia, Vision change ENT: Reports: As per HPI. Denies: Congestion, Dental pain, Ear pain, Epistaxis , Hearing loss, Throat pain Respiratory: Reports: As per HPI. Denies: Cough, Dyspnea, Hemoptysis, Stridor, Wheezes Cardiovascular: Reports: As per HPI. Denies: Arrhythmia, Chest pain, Dyspnea on exertion, Edema, Murmurs, Orthopnea, Palpitations, Paroxysmal nocturnal dyspnea, Rheumatic Fever, Syncope Endocrine: Reports: As per HPI. Denies: Fatigue, Heat or cold intolerance, Polydipsia, Polyuria Gastrointestinal: Reports: As per HPI. Denies: Abdominal pain, Constipation, Diarrhea, Hematemesis, Hematochezia, Melena, Nausea, Vomiting Genitourinary: Reports: As per HPI. Denies: Abnormal menses, Discharge, Dyspareunia, Dysuria, Frequency, Hematuria, Incontinence, Retention, Urgency Musculoskeletal: Reports: As per HPI. Denies: Arthralgia, Back pain, Gout, Joint swelling, Myalgia, Neck pain Skin: Reports: As per HPI. Denies: Bruising, Change in color, Change in hair/ nails, Lesions, Pruritus, Rash Neurological: Reports: As per HPI. Denies: Abnormal gait, Confusion, Headache, Numbness, Paresthesias, Seizure, Tingling, Tremors, Vertigo, Weakness Psychiatric: Reports: As per HPI. Denies: Anxiety, Auditory hallucinations, Depression, Homicidal thoughts, Suicidal thoughts, Visual hallucinations Hematological/Lymphatic: Reports: As per HPI. Denies: Anemia, Blood Clots, Easy bleeding, Easy bruising, Swollen glands Past Medical History - SOCIAL HISTORY Smoking Status: Former smoker Alcohol Use: None Drug Use: None - RESPIRATORY Hx Respiratory Disorders: Yes Hx Asthma: Yes Hx Bronchitis: Yes Hx Pneumonia: Yes Hx Pulmonary Embolism: Yes (1 in left and 1 in right) - CARDIOVASCULAR Hx Cardio Disorders: Yes Hx Deep Vein Thrombosis: Yes (4 in RLE) Hx Hypertension: Yes Comment:: high cholestrol - NEURO Hx Neuro Disorders: No - GI Hx GI Disorders: Yes Comment:: fatty liver disease - Hx Genitourinary Disorders: Yes - ENDOCRINE Hx Endocrine Disorders: Yes Hx Thyroid Disease: Yes - MUSCULOSKELETAL Hx Musculoskeletal Disorders: No - PSYCH Hx Psych Problems: Yes Hx Anxiety: Yes (panic disorder) Hx Behavior Problems: Yes Hx Depression: Yes Comment:: Bipolar type 1, ADD - HEMATOLOGY/ONCOLOGY Hx Hematology/Oncology Disorders: Yes Hx Anemia: Yes (iron deficiency) Hx Blood Transfusions: Yes Hx Blood Transfusion Reaction: No Family Medical History Any Significant Family History?: Yes Hx HTN: Father, Mother, Brother/Sister, Grandparents Physical Exam - General General Appearance: Alert, Oriented x3, Cooperative, No acute distress - Head Head exam: Normal inspection - Eye Eye exam: Normal appearance, PERRL Pupils: Normal accommodation - ENT ENT exam: Normal exam, Mucous membranes moist, Normal external ear exam, Normal orophraynx, TM's normal bilaterally Ear exam: Normal external inspection. negative: External canal tenderness Nasal Exam: Normal inspection. negative: Discharge, Sinus tenderness Mouth exam: Normal external inspection, Tongue normal Teeth exam: Normal inspection. negative: Dental caries Throat exam: Normal inspection. negative: Tonsillar erythema, Tonsillar exudate - Neck Neck exam: Normal inspection, Full ROM. negative: Tenderness - Respiratory Respiratory exam: Normal lung sounds bilaterally. negative: Respiratory distress - Cardiovascular Cardiovascular Exam: Regular rate, Normal rhythm, Normal heart sounds - GI/Abdominal GI/Abdominal exam: Soft, Normal bowel sounds. negative: Tenderness - Rectal Rectal exam: Deferred - exam: Deferred - Extremities Extremities exam: Normal inspection, Full ROM, Normal capillary refill. negative: Calf tenderness, Pedal edema, Tenderness - Back Back exam: Reports: Normal inspection, Full ROM. Denies: CVA tenderness (R), CVA tenderness (L), Muscle spasm, Rash noted, Tenderness - Neurological Neurological exam: Alert, Normal gait, Oriented X3, Reflexes normal - Psychiatric Psychiatric exam: Normal affect, Normal mood - Skin Skin exam: Dry, Intact, Normal color, Warm Course Vital Signs 12/05/17 18:24 Temperature 97.7 F Pulse Rate 88 Respiratory 18 Rate Blood Pressure 122/88 Pulse Ox 97 - Reevaluation(s) Reevaluation #1: Results discussed with patient. All questions answered. She states a point on her right sternal border reproduces her chest pain and toradol and norflex has been ordered. She understands she is to get a 4 hour repeat troponin in 40 minutes. 12/05/17 22:37 Reevaluation #2: 12/05/17 23:45 Four hour repeat troponin has not risen. Patient is to be discharged home. All questions answered. Ready for discharge. Medical Decision Making - Management Options MDM Management: No Additional Work-up Planned - Data Complexity MDM Data: Labs Ordered and/or Reviewed, X-Ray Ordered and/or Reviewed (CTA Negative for PE or abnormality. CXR shows elevated left hemidiaphragm otherwise normal. Both per Rad. ), EKG Ordered and/or Reviewed - Lab Data Result diagrams: 12/05/17 19:13 12/05/17 19:13 Lab Results 12/05/17 12/05/17 12/05/17 Range/Units 19:13 19:13 19:13 WBC 10.4 (4.2-12.2) K/uL RBC 4.30 (3.80-5.40) M/uL Hgb 13.5 (11.6-16.0) gm/dl Hct 40.3 (35.0-47.0) % MCV 93.7 (81-97) fl MCH 31.4 (27-33) pg MCHC 33.5 (32-36) g/dl RDW 13.6 (11.5-14.5) % Plt Count 265 (130-400) K/uL MPV 10.0 (7.4-10.4) fl Gran % 53.1 (47-80) % Lymphocytes % 37.0 (16-45) % Monocytes % 5.6 (0-9) % Eosinophils % 3.7 (0-6) % Basophils % 0.6 (0-6) % PT 11.4 (9.5-12.1) SECONDS INR 1.1 APTT 22.9 L (24.5-39.1) SECONDS D-Dimer 0.58 (0-0.59) mg/L FEU Sodium 139 (136-145) mmol/L Potassium 3.6 (3.4-4.5) mmol/L Chloride 100 (98-107) mmol/L Carbon Dioxide 26.0 (22-29) mmol/L Anion Gap 13.0 (7-16) BUN 6 (6-20) mg/dL Creatinine 0.6 (0.5-0.9) mg/dL Estimated GFR > 60 mL/min Random Glucose 121 H (74-109) mg/dL Calcium 10.1 H (8.6-10.0) mg/dL CK-MB (CK-2) 2.0 (<3.77) ng/mL Troponin T < 0.010 (0-0.010) ng/mL - EKG Data -: EKG Interpreted by Me EKG: No Acute Changes, Unchanged From Previous (unchanged [facility] 03-31-17) Disposition Disposition: Discharge Clinical Impression: Chest wall pain, Intermittent palpitations Disposition: Home, Self-Care Condition: (1) Good Instructions: Heart Palpitations (ED) Additional Instructions: Home, rest. Increase fluid intake as you were dehydrated this visit. Follow up with your PCP as needed. Quality - Quality Measures Quality Measures: N/A - Blood Pressure Screening Does Patient Have Any of the Following: No Blood Pressure Classification: Pre-Hypertensive BP Reading Systolic Measurement: 122 Diastolic Measurement: 88 Screening for High Blood Pressure: < Normal BP, F/U Not Required > [G8783]
[2017-12-05] MEDS ORDERED: ORPHENADRINE CITRATE 60MG/2ML VIAL IVP ONE (22:36)
[2017-12-05] MEDS ORDERED: KETOROLAC 30 MG/ML VIAL IVP ONE (22:36)
[2017-12-05] MEDS ORDERED: 0.9 % SODIUM CHLORIDE 1,000 ML BAG IV ONE (22:36)
--- NOTE | 2017-12-07 10:59 | RADIOLOGY REPORT ---
DATE: 12/05/2017 at 8:06 p.m. EXAM: TWO-VIEW, CHEST. HISTORY: Chest pain, heart palpitations. TECHNIQUE: PA and lateral views. COMPARISON: Two-view, chest dated 12/29/2016. FINDINGS: Heart size is normal. The lungs appear expanded with no acute infiltrate seen. No pleural effusion or pneumothorax evident. Mild elevation of the right hemidiaphragm. IMPRESSION: 1. MILD ELEVATION OF THE RIGHT HEMIDIAPHRAGM. 2. NO DEFINITE ACUTE INFILTRATE SEEN. JOB NUMBER: [id number] MTDD
--- NOTE | 2017-12-07 11:40 | CT ANGIOGRAM REPORT ---
DATE: 12/05/2017 at 9:16 p.m. EXAM: CT ANGIOGRAM OF THE CHEST FOR PULMONARY EMBOLUS WITH POSTPROCESSING. HISTORY: Chest pain extending through to the back. Possible pulmonary embolus. TECHNIQUE: CT angiogram of the chest performed following the intravenous administration of 75 mL of Omnipaque 350 as the intravenous contrast. Postprocessing on an independent workstation was performed with multiple 3D maximum-intensity projection series obtained. COMPARISON: Chest CT angiogram dated 03/13/2017. Comparison is made with the two-view chest x-ray from 12/05/2017. FINDINGS: No pulmonary embolus is identified. No thoracic aortic aneurysm or dissection is seen. No pleural or pericardial effusion is evident. No hilar or mediastinal adenopathy is seen. Diffuse fatty infiltration of the visualized liver. No pneumothorax evident. No acute alveolar infiltrate is identified. IMPRESSION: NO DEFINITE PULMONARY EMBOLUS IDENTIFIED. DIFFUSE FATTY INFILTRATION OF THE LIVER. POSTOPERATIVE CHOLECYSTECTOMY. JOB NUMBER: [id number] MTDD
== END 2017-12-06 | disposition home or self-care (01) ==
LOC: ER 17:25
DX: R00.2 Palpitations (principal); R07.89 Other chest pain; I10 Essential (primary) hypertension; Z87.891 Personal history of nicotine dependence; Z86.72 Personal history of thrombophlebitis; Z86.718 Personal history of other venous thrombosis and embolism
CPT/HCPCS: 99284 ×2; 96374; 96375; 85025; 85730; 85610; 82553; 80048; 84443; 84484; 85379; 71046; 71275; 93005; 93010; Q9967; J1885; J2360

== ENCOUNTER 2018-01-14 19:05 | Emergency (ER) | payer MEDICAID ==
[2018-01-14] MEDS ORDERED: AZITHROMYCIN 500 MG TABLET PO ONE (19:20)
[2018-01-14] MEDS ORDERED: ACETAMINOPHEN 500 MG TABLET PO ONE (19:21)
--- NOTE | 2018-01-14 19:23 | Emergency Department Record ---
History of Present Illness - General Chief Complaint: Fever Stated Complaint: ELEVATED TEMP,BRIONNA Time Seen by Provider: 01/14/18 19:11 Source: Patient Mode of Arrival: Ambulatory Limitations: No limitations - History of Present Illness Initial Comments: 37 yo female presents to ED for evaluation of sore throat and congestion symptoms that began last night. Patient reports non-productive dry cough as well, reports fever and chills. Patient denies abdominal pain or urinary symptoms, denies nausea or vomiting. Patient denies long history of mental health problems, denies previous heart or lung problems. MD Complaint: Fever Onset/Timin -: Days(s) Context: Sick contacts Associated Symptoms: Nausea, Sore throat Treatments Prior to Arrival: None - Related Data Previous Rx's Medication Instructions Recorded Albuterol Sulfate [Proair Hfa] 1 - 2 puff IH .EVERY 4-6 HOURS PRN 08/09/16 #1 inhaler Cyclobenzaprine HCl [Flexeril] 10 mg PO TID #14 tablet 07/20/17 Azithromycin [Zithromax] 250 mg PO DAILY #4 tab 01/14/18 Allergies Allergy/AdvReac Type Severity Reaction Status Date / Time cefuroxime axetil Allergy Intermediate RASH Verified 12/05/17 18:31 [From Ceftin] clarithromycin [From Biaxin] Allergy Intermediate RASH Verified 12/05/17 18:31 divalproex sodium Allergy Intermediate ALTERED Verified 12/05/17 18:31 [From Depakote] MENTAL STATUS gabapentin Allergy Intermediate ALTERED Verified 12/05/17 18:31 MENTAL STATUS hydrocodone bitartrate Allergy Intermediate HIVES Verified 12/05/17 18:31 [From Vicoprofen] ibuprofen [From Vicoprofen] Allergy Intermediate HIVES Verified 12/05/17 18:31 iron Allergy Intermediate ITCHING Verified 12/05/17 18:31 Penicillins Allergy Intermediate HIVES Verified 12/05/17 18:31 ondansetron HCl AdvReac Intermediate ALTERED Verified 12/05/17 18:31 [From Zofran (as MENTAL hydrochloride)] STATUS Travel Screening - Travel/Exposure Within Last 30 Days Have you traveled within the last 30 days?: No Review of Systems Constitutional: Reports: Chills, Fever, Malaise. Denies: Night sweats Eyes: Denies: Eye discharge, Eye pain ENT: Reports: Congestion. Denies: Ear pain, Epistaxis Respiratory: Denies: Cough, Dyspnea Cardiovascular: Denies: Chest pain, Dyspnea on exertion Endocrine: Denies: Fatigue, Heat or cold intolerance Gastrointestinal: Denies: Abdominal pain, Nausea, Vomiting Genitourinary: Denies: Incontinence, Retention Musculoskeletal: Denies: Arthralgia, Back pain Skin: Denies: Bruising, Change in color Neurological: Denies: Abnormal gait, Confusion, Headache, Seizure Psychiatric: Denies: Anxiety Hematological/Lymphatic: Denies: Anemia, Blood Clots Past Medical History - SOCIAL HISTORY Smoking Status: Former smoker - RESPIRATORY Hx Respiratory Disorders: Yes Hx Asthma: Yes Hx Bronchitis: Yes Hx Pneumonia: Yes Hx Pulmonary Embolism: Yes (1 in left and 1 in right) - CARDIOVASCULAR Hx Cardio Disorders: Yes Hx Deep Vein Thrombosis: Yes (4 in RLE) Hx Hypertension: Yes Comment:: high cholestrol - NEURO Hx Neuro Disorders: No - GI Hx GI Disorders: Yes Comment:: fatty liver disease - Hx Genitourinary Disorders: Yes - ENDOCRINE Hx Endocrine Disorders: Yes Hx Thyroid Disease: Yes - MUSCULOSKELETAL Hx Musculoskeletal Disorders: No - PSYCH Hx Psych Problems: Yes Hx Anxiety: Yes (panic disorder) Hx Behavior Problems: Yes Hx Depression: Yes Comment:: Bipolar type 1, ADD - HEMATOLOGY/ONCOLOGY Hx Hematology/Oncology Disorders: Yes Hx Anemia: Yes (iron deficiency) Hx Blood Transfusions: Yes Hx Blood Transfusion Reaction: No Family Medical History Any Significant Family History?: Yes Hx HTN: Father, Mother, Brother/Sister, Grandparents Physical Exam - General General Appearance: Alert, Oriented x3, Cooperative, Mild distress Limitations: No limitations - Head Head exam: Atraumatic, Normocephalic, Normal inspection Head exam detail: negative: Abrasion, Contusion, Grijalva's sign, General tenderness, Hematoma, Laceration - Eye Eye exam: Normal appearance. negative: Conjunctival injection, Periorbital swelling, Periorbital tenderness, Scleral icterus - ENT Ear exam: negative: Auricular hematoma, Auricular trauma Nasal Exam: negative: Active bleeding, Discharge, Dried blood, Foreign body Mouth exam: negative: Drooling, Laceration, Muffled voice, Tongue elevation Throat exam: Tonsillar erythema. negative: Tonsillomegaly, R peritonsillar mass , L peritonsillar mass - Neck Neck exam: negative: Meningismus, Tenderness - Respiratory Respiratory exam: Normal lung sounds bilaterally. negative: Rales, Respiratory distress, Rhonchi, Stridor - Cardiovascular Cardiovascular Exam: Regular rate, Normal rhythm, Normal heart sounds - GI/Abdominal GI/Abdominal exam: Soft. negative: Rebound, Rigid, Tenderness - Rectal Rectal exam: Deferred - exam: Deferred - Extremities Extremities exam: Normal inspection. negative: Pedal edema, Tenderness - Back Back exam: Denies: CVA tenderness (R), CVA tenderness (L) - Neurological Neurological exam: Alert, Normal gait, Oriented X3 - Psychiatric Psychiatric exam: Normal affect, Normal mood - Skin Skin exam: Normal color. negative: Abrasion Type of lesion: negative: abrasion Course Vital Signs 01/14/18 19:12 Temperature 101.1 F H Pulse Rate [ 123 H Pulse Ox Probe] Respiratory 16 Rate Blood Pressure 142/105 [Left Arm] Pulse Ox 96 - Reevaluation(s) Reevaluation #1: 01/14/18 19:26 Symptoms appear consistent with URI, will initiate treatment with Zithromax and Tylenol for her fever symptoms with instructions to return to the ED for any worsening of her symptoms. Patient agrees with the plan of care as discussed, appears stable for discharge at this time. Disposition Disposition: Discharge Clinical Impression: URI (upper respiratory infection) Qualifiers: URI type: unspecified URI Qualified Code(s): J06.9 - Acute upper respiratory infection, unspecified Disposition: Home, Self-Care Condition: (2) Stable Instructions: Fever in Adults (ED), Upper Respiratory Infection (ED) Additional Instructions: Return to ED if your symptoms worsen or if you have any concerns. Zithromax as directed. Follow-up with your family doctor in 3-5 days as directed. Prescriptions: Azithromycin [Zithromax] 250 mg PO DAILY #4 tab Forms: Patient Portal Access Time of Disposition: 19:23 Quality - Quality Measures Quality Measures: N/A - Blood Pressure Screening Does Patient Have Any of the Following: No Blood Pressure Classification: Hypertensive Reading Systolic Measurement: 142 Diastolic Measurement: 105 Screening for High Blood Pressure: < First Hypertensive BP, F/U Documented > [ G8950] First Hypertensive Follow-up Interventions: Referral to alternative/primary care provider.
== END 2018-01-14 19:31 | disposition home or self-care (01) ==
LOC: ER 19:05
DX: J06.9 Acute upper respiratory infection, unspecified (principal); R50.81 Fever presenting with conditions classified elsewhere; I10 Essential (primary) hypertension; F17.210 Nicotine dependence, cigarettes, uncomplicated
CPT/HCPCS: 99282

== ENCOUNTER 2018-05-28 18:03 | Emergency (ER) | payer MEDICAID ==
--- NOTE | 2018-05-28 18:31 | Emergency Department Record ---
History of Present Illness - General Stated complaint: ALLERGIC REACTION TO MEDS Time Seen by Provider: 05/28/18 18:28 Source: Patient Mode of Arrival: Ambulatory Limitations: No limitations - History of Present Illness Initial comments: 38 yo female presents to ED for evaluation an itchy rash that has been present for 10-14 days. Patient reports starting both Invega (schizophrenia medication ) as well as Zocor slightly over 2 weeks ago, she is concerned about possible drug reaction. Patient reports red, itchy lesions diffusely, has been taking Benadryl without significant improvement. Patient denies fevers, chills, blisters, or oral lesions on examination. MD complaint: Rash Onset/Timin -: Days(s) Hx Tetanus Toxoid Vaccination: No Location: Neck, Chest, Back, LUE, RUE Severity: Moderate Quality: Other (itching) Improves with: None Worsens with: None Context: New medication Associated symptoms: Denies other symptoms Treatments Prior to Arrival: Benadryl - Related Data Home Medications Medication Instructions Recorded Confirmed Last Taken Paliperidone Palmitate [Invega 156 mg IM MONTHLY 05/28/18 05/28/18 05/15/18 Sustenna] Simvastatin [Zocor] 10 mg PO QHS 05/28/18 05/28/18 05/27/18 Vortioxetine Hydrobromide 10 mg PO DAILY 05/28/18 05/28/18 Unknown [Brintellix] Previous Rx's Medication Instructions Recorded Albuterol Sulfate [Proair Hfa] 1 - 2 puff IH .EVERY 4-6 HOURS PRN 08/09/16 #1 inhaler Allergies Allergy/AdvReac Type Severity Reaction Status Date / Time cefuroxime axetil Allergy Intermediate RASH Verified 05/28/18 18:33 [From Ceftin] clarithromycin [From Biaxin] Allergy Intermediate RASH Verified 05/28/18 18:33 divalproex sodium Allergy Intermediate ALTERED Verified 05/28/18 18:33 [From Depakote] MENTAL STATUS gabapentin Allergy Intermediate ALTERED Verified 05/28/18 18:33 MENTAL STATUS hydrocodone bitartrate Allergy Intermediate HIVES Verified 05/28/18 18:33 [From Vicoprofen] ibuprofen [From Vicoprofen] Allergy Intermediate HIVES Verified 05/28/18 18:33 iron Allergy Intermediate ITCHING Verified 05/28/18 18:33 Penicillins Allergy Intermediate HIVES Verified 05/28/18 18:33 ondansetron HCl AdvReac Intermediate ALTERED Verified 05/28/18 18:33 [From Zofran (as MENTAL hydrochloride)] STATUS Review of Systems Constitutional: Denies: Chills, Fever, Malaise, Night sweats Eyes: Denies: Eye discharge, Eye pain ENT: Denies: Congestion, Ear pain, Epistaxis Respiratory: Denies: Cough, Dyspnea Cardiovascular: Denies: Chest pain, Dyspnea on exertion Endocrine: Denies: Fatigue, Heat or cold intolerance Gastrointestinal: Denies: Abdominal pain, Nausea, Vomiting Genitourinary: Denies: Incontinence, Retention Musculoskeletal: Denies: Arthralgia, Back pain Skin: Reports: Rash. Denies: Bruising, Change in color Neurological: Denies: Abnormal gait, Confusion, Headache, Tingling Psychiatric: Denies: Anxiety Hematological/Lymphatic: Denies: Anemia, Blood Clots Past Medical History - SOCIAL HISTORY Smoking Status: Former smoker - RESPIRATORY Hx Respiratory Disorders: Yes Hx Asthma: Yes Hx Bronchitis: Yes Hx Pneumonia: Yes Hx Pulmonary Embolism: Yes (1 in left and 1 in right) - CARDIOVASCULAR Hx Cardio Disorders: Yes Hx Deep Vein Thrombosis: Yes (4 in RLE) Hx Hypertension: Yes Comment:: high cholestrol - NEURO Hx Neuro Disorders: No - GI Hx GI Disorders: Yes Comment:: fatty liver disease - Hx Genitourinary Disorders: Yes - ENDOCRINE Hx Endocrine Disorders: Yes Hx Thyroid Disease: Yes - MUSCULOSKELETAL Hx Musculoskeletal Disorders: No - PSYCH Hx Psych Problems: Yes Hx Anxiety: Yes (panic disorder) Hx Behavior Problems: Yes Hx Depression: Yes Comment:: Bipolar type 1, ADD - HEMATOLOGY/ONCOLOGY Hx Hematology/Oncology Disorders: Yes Hx Anemia: Yes (iron deficiency) Hx Blood Transfusions: Yes Hx Blood Transfusion Reaction: No Family Medical History Hx HTN: Father, Mother, Brother/Sister, Grandparents Physical Exam - General General Appearance: Alert, Oriented x3, Cooperative, No acute distress Limitations: No limitations - Head Head exam: Atraumatic, Normocephalic, Normal inspection Head exam detail: negative: Abrasion, Contusion, Grijalva's sign, General tenderness, Hematoma, Laceration - Eye Eye exam: Normal appearance. negative: Conjunctival injection, Periorbital swelling, Periorbital tenderness, Scleral icterus - ENT Ear exam: negative: Auricular hematoma, Auricular trauma Nasal Exam: negative: Active bleeding, Discharge, Dried blood, Foreign body Mouth exam: negative: Drooling, Laceration, Muffled voice, Tongue elevation Throat exam: Other (No oral lesions/ulcerations noted on examination). negative : Tonsillar erythema, R peritonsillar mass, L peritonsillar mass - Neck Neck exam: Normal inspection. negative: Meningismus, Tenderness - Respiratory Respiratory exam: Normal lung sounds bilaterally. negative: Respiratory distress, Rhonchi, Stridor, Wheezes - Cardiovascular Cardiovascular Exam: Regular rate, Normal rhythm, Normal heart sounds - GI/Abdominal GI/Abdominal exam: Soft. negative: Distended, Rebound, Rigid, Tenderness - Rectal Rectal exam: Deferred - exam: Deferred - Extremities Extremities exam: Other (Rash to the UEs bilaterally). negative: Calf tenderness, Pedal edema, Tenderness - Back Back exam: Denies: CVA tenderness (R), CVA tenderness (L) - Neurological Neurological exam: Alert, Normal gait, Oriented X3 - Psychiatric Psychiatric exam: Normal affect, Normal mood - Skin Skin exam: Erythema, Other (Diffuse ertyehamtous, maculo-papular rash to the upper extremities, chest, and back on examination.) Type of lesion: negative: abrasion Course - Reevaluation(s) Reevaluation #1: 05/28/18 18:37 History and physical examination appear c.w possible drug reaction. Patient was instructed to hold Zocor as her Invega in monthly IM injection Will also initiate treatment with a low-dose steroid for only 3 days to avoid precipitating symptoms of schizophrenia. Patient was instructed to continue Benadryl as needed as well. Patient appears stable for discharge at this time with instructions to follow- up with her PCP in 3-5 days as directed. Disposition Disposition: Discharge Clinical Impression: Drug reaction Qualifiers: Encounter type: initial encounter Qualified Code(s): T50.905A - Adverse effect of unspecified drugs, medicaments and biological substances, initial encounter Disposition: Home, Self-Care Condition: (2) Stable Instructions: Adverse Drug Reaction (ED) Additional Instructions: Return to ED if your symptoms worsen or if you have any concerns. Prednisone as directed. Stop Zocor until seen by your PCP in 3-5 days as directed. Forms: Patient Portal Access Time of Disposition: 18:31 Quality - Quality Measures Quality Measures: N/A - Blood Pressure Screening Does Patient Have Any of the Following: No Blood Pressure Classification: Hypertensive Reading Systolic Measurement: 131 Diastolic Measurement: 97 Screening for High Blood Pressure: < First Hypertensive BP, F/U Documented > [ G8950] First Hypertensive Follow-up Interventions: Referral to alternative/primary care provider.
== END 2018-05-28 18:45 | disposition home or self-care (01) ==
LOC: ER 18:03
DX: T50.905A Adverse effect of unspecified drugs, medicaments and biological substances, initial encounter (principal); Z86.711 Personal history of pulmonary embolism; Z86.718 Personal history of other venous thrombosis and embolism; Z87.891 Personal history of nicotine dependence; E78.00 Pure hypercholesterolemia, unspecified
CPT/HCPCS: 99282

== ENCOUNTER 2019-08-01 15:57 | Emergency (ER) | payer MEDICAID ==
[2019-08-01] MEDS ORDERED: ACETAMINOPHEN 325 MG TAB PO ONE (16:12)
--- NOTE | 2019-08-01 16:15 | Emergency Department Record ---
History of Present Illness - General Chief complaint: Extremity Problem Stated complaint: LT KNEE PAIN Time Seen by Provider: 08/01/19 16:02 Source: Patient Mode of Arrival: Ambulatory Limitations: No limitations - History of Present Illness Initial comments: The patient is here due to L knee pain for 2 weeks. The pain is located over the anterior medial L knee and is worse with any walking or bending. She denies any trauma or injury to the knee. The patient also denies any calf or thigh pain or any CP or SOB. MD Complaint: Extremity pain, Joint pain Onset/Timin -: Week(s) Location: Left, Knee Severity scale (1-10): 6 Quality: Aching, Burning Associated Symptoms: Denies other symptoms - Related Data Allergies Allergy/AdvReac Type Severity Reaction Status Date / Time cefuroxime axetil Allergy Intermediate RASH Verified 08/01/19 16:06 [From Ceftin] clarithromycin [From Biaxin] Allergy Intermediate RASH Verified 08/01/19 16:06 divalproex sodium Allergy Intermediate ALTERED Verified 08/01/19 16:06 [From Depakote] MENTAL STATUS gabapentin Allergy Intermediate ALTERED Verified 08/01/19 16:06 MENTAL STATUS hydrocodone bitartrate Allergy Intermediate HIVES Verified 08/01/19 16:06 [From Vicoprofen] iron Allergy Intermediate ITCHING Verified 08/01/19 16:06 Penicillins Allergy Intermediate HIVES Verified 08/01/19 16:06 ondansetron HCl AdvReac Intermediate ALTERED Verified 08/01/19 16:06 [From Zofran (as MENTAL hydrochloride)] STATUS Travel Screening - Travel/Exposure Within Last 30 Days Have you traveled within the last 30 days?: No - Travel/Exposure Within Last Year Have you traveled outside the [place] in the last year?: No - Additonal Travel Details Have you been exposed to anyone with a communicable illness?: No - Travel Symptoms Symptom Screening: None Review of Systems Constitutional: Denies: Chills, Fever Eyes: Denies: Eye discharge ENT: Denies: Congestion Respiratory: Denies: Cough, Dyspnea Past Medical History - SOCIAL HISTORY Smoking Status: Former smoker Alcohol Use: None Drug Use: None - RESPIRATORY Hx Respiratory Disorders: Yes Hx Asthma: Yes Hx Bronchitis: Yes Hx Pneumonia: Yes Hx Pulmonary Embolism: Yes (1 in left and 1 in right) - CARDIOVASCULAR Hx Cardio Disorders: Yes Hx Deep Vein Thrombosis: Yes (4 in RLE) Hx Hypertension: Yes Comment:: high cholestrol - NEURO Hx Neuro Disorders: No - GI Hx GI Disorders: Yes Comment:: fatty liver disease - Hx Genitourinary Disorders: Yes - ENDOCRINE Hx Endocrine Disorders: Yes Hx Thyroid Disease: Yes - MUSCULOSKELETAL Hx Musculoskeletal Disorders: No - PSYCH Hx Psych Problems: Yes Hx Anxiety: Yes (panic disorder) Hx Behavior Problems: Yes Hx Depression: Yes Comment:: Bipolar type 1, ADD - HEMATOLOGY/ONCOLOGY Hx Hematology/Oncology Disorders: Yes Hx Anemia: Yes (iron deficiency) Hx Blood Transfusions: Yes Hx Blood Transfusion Reaction: No Family Medical History Any Significant Family History?: Yes Hx HTN: Father, Mother, Brother/Sister, Grandparents Physical Exam - General General Appearance: Alert, Cooperative, No acute distress - Head Head exam: Atraumatic - Eye Eye exam: Normal appearance - Neck Neck exam: Normal inspection, Full ROM. negative: Tenderness - Respiratory Respiratory exam: Normal lung sounds bilaterally. negative: Respiratory distress - Cardiovascular Cardiovascular Exam: Regular rate, Normal rhythm, Normal heart sounds - GI/Abdominal GI/Abdominal exam: Soft, Normal bowel sounds. negative: Tenderness - Extremities Extremities exam: Normal inspection (There is no knee swelling, effusion, or erythema.), Full ROM (There is normal ROM without significant pain.), Normal capillary refill, Tenderness (There is mild tenderness to the L anterior medial knee area. ), Other (The L lower extremity is NVI.). negative: Joint swelling (There is no knee effusion. ) - Neurological Neurological exam: Alert. negative: Motor sensory deficit Course Vital Signs 08/01/19 15:59 Temperature 98.2 F Pulse Rate 114 H Respiratory 16 Rate Blood Pressure 128/106 Pulse Ox 94 L - Reevaluation(s) Reevaluation #1: The patient is resting comfortably. I did discuss the normal xrays and the need to F/U with her PCP next week for recheck. She is to wear the norman wrap on the knee when possible. 08/01/19 17:03 Medical Decision Making - Data Complexity MDM Data: X-Ray Ordered and/or Reviewed - Radiology Data Radiology results: Report reviewed (R knee: Neg for any acute fx or dislocation.) Disposition Disposition: Discharge Clinical Impression: Knee pain, left Qualifiers: Chronicity: acute Qualified Code(s): M25.562 - Pain in left knee Disposition: Home, Self-Care Condition: (2) Stable Instructions: Arthralgia (ED) Additional Instructions: Please continue your home pain medicines and keep the norman wrap on the L knee. Please ice the knee when possible. Please see your doctor next week for recheck. Forms: Patient Portal Access Time of Disposition: 17:07 Quality - Quality Measures Quality Measures: N/A - Blood Pressure Screening View Details: Yes Does Patient Have Any of the Following: No Blood Pressure Classification: Hypertensive Reading Systolic Measurement: 128 Diastolic Measurement: 106 Screening for High Blood Pressure: < First Hypertensive BP, F/U Documented > [G8950] First Hypertensive Follow-up Interventions: Referral to alternative/primary care provider.
--- NOTE | 2019-08-01 16:58 | RADIOLOGY REPORT ---
EXAMINATION: Left Knee, Three Views EXAM DATE: 08/01/2019 4:29 PM TECHNIQUE: Frontal, lateral, and oblique INDICATION: L knee pain COMPARISON: None ENCOUNTER: Initial FINDINGS: Mild tricompartment joint space narrowing. There is no fracture or dislocation. There is no gross eff usion. IMPRESSION: Negative for acute or healing fracture or knee joint effusion. Mild degenerative osteoarthritis. Dictated by: Nicholas Torres MD on 08/01/2019 4:50 PM. .
== END 2019-08-01 17:11 | disposition home or self-care (01) ==
LOC: ER 15:57
DX: M25.562 Pain in left knee (principal); I10 Essential (primary) hypertension; Z87.891 Personal history of nicotine dependence
CPT/HCPCS: 99283